=== PATIENT | female | born 1975 | race Caucasian/White ===

== ENCOUNTER 2016-12-17 10:12 | Emergency (ER) | payer OTHER ==
[2016-12-17 10:22] VITALS: BMI 21.7
[2016-12-17] MEDS ORDERED: ONDANSETRON 4 MG/2 ML VIAL ONE ×2 (10:34→13:11)
--- NOTE | 2016-12-17 10:35 | PDOC ---
History of Present Illness - General Chief Complaint: Pain Stated Complaint: ABD PAIN, VOMITING Time Seen by Provider: 12/17/16 10:25 - History of Present Illness Initial Comments: 12/17/16 10:53 The pt is a 41 year old female with a PMH of gastric sleeve who presents to ED complaining of nausea, vomiting and diarrhea and abdominal pain for 2-3 days. She vomited multiple times non bloody, non bilious, diarrhea is watery, non bloody. She is also complaining of abdominal pain, left side of her abdomen, radiating to the back, intermittent, 7/10, worse when vomiting. The pt is also complaining of generalized weakness. She denies fever, chills, dizziness. She denies chest pain, SOB, palpitations. She denies dysuria, increased frequency, urgency. The pt's son has been sick recently, had similar symptoms. Past History - Past Medical History Allergies/Adverse Reactions: Allergies Allergy/AdvReac Type Severity Reaction Status Date / Time Penicillins Allergy Rash Verified 08/29/16 09:38 Home Medications: Ambulatory Orders Alprazolam [Xanax] 0.25 mg PO TID 06/05/16 Sertraline HCl [Zoloft] 100 mg PO ASDIR 08/29/16 Anemia: Yes Asthma: No Cardiac Disorders: No CHF: No Diabetes: No HTN: No Hypercholesterolemia: No Kidney Stones: No Psychiatric Problems: Yes (ANXIETY) - Surgical History Abdominal Surgery: Yes (Gastric sleeve 04/2015) Appendectomy: Yes Cholecystectomy: Yes GI Surgery: Yes (SLEEVE) - Immunization History Immunization Up to Date: Yes - Psycho/Social/Smoking Cessation Hx Anxiety: Yes Suicidal Ideation: No Smoking Status: No Smoking History: Never smoked Have you smoked in the past 12 months: No Number of Cigarettes Smoked Daily: 0 Information on smoking cessation initiated: No Hx Alcohol Use: No Drug/Substance Use Hx: No Substance Use Type: None Review of Systems - Review of Systems Comments:: 12/17/16 11:08 REVIEW OF SYSTEMS CONSTITUTIONAL: Absent: fever, chills, diaphoresis, generalized weakness, malaise, loss of appetite, weight change HEENT: Absent: rhinorrhea, nasal congestion, throat pain, throat swelling, difficulty swallowing, mouth swelling, ear pain, eye pain, visual changes CARDIOVASCULAR: Absent: chest pain, syncope, palpitations, irregular heart rate, lightheadedness , peripheral edema RESPIRATORY: Absent: cough, shortness of breath, dyspnea with exertion, orthopnea, wheezing, GASTROINTESTINAL: abdominal pain, nausea, vomiting, diarrhea, Absent: abdominal distension, constipation, melena, hematochezia GENITOURINARY: Absent: dysuria, frequency, urgency, hesitancy, hematuria, flank pain, genital pain MUSCULOSKELETAL: baqck pain Absent: myalgia, joint swelling, back pain, neck pain SKIN: Absent: rash, itching, pallor HEMATOLOGIC/IMMUNOLOGIC: Absent: easy bleeding, easy bruising, lymphadenopathy, frequent infections ENDOCRINE: Absent: unexplained weight gain, unexplained weight loss, heat intolerance, cold intolerance NEUROLOGIC: Absent: headache, focal weakness or paresthesias, dizziness, unsteady gait, seizure, mental status changes, bladder or bowel incontinence PSYCHIATRIC: Absent: anxiety, depression 12/17/16 11:10 *Physical Exam - Vital Signs Last Vital Signs Temp Pulse Resp BP Pulse Ox 98 F 125 H 17 118/81 98 12/17/16 10:19 12/17/16 10:19 12/17/16 10:19 12/17/16 10:19 12/17/16 10:19 - Physical Exam Comments: 12/17/16 11:10 GENERAL: The patient is awake, alert, and fully oriented, in no acute distress. HEAD: Normal with no signs of trauma. EYES: PERRL, extraocular movements intact, sclera anicteric, conjunctiva clear. No ptosis. ENT: Ears normal, nares patent, oropharynx clear without exudates, moist mucous membranes. NECK: Trachea midline, full range of motion, supple. LUNGS: Breath sounds equal, clear to auscultation bilaterally, no wheezes, no crackles, no accessory muscle use. HEART: Regular rate and rhythm, S1, S2 without murmur, rub or gallop. ABDOMEN: Soft, tender to palpation in LUQ, nondistended, normoactive bowel sounds, no guarding, no rebound, no hepatosplenomegaly, no masses. EXTREMITIES: 2+ pulses, warm, well-perfused, no edema. NEUROLOGICAL: Cranial nerves II through XII grossly intact. Normal speech, gait not observed. PSYCH: Normal mood, normal affect. SKIN: Warm, dry, normal turgor, no rashes or lesions noted ED Treatment Course - LABORATORY CBC & Chemistry Diagram: 12/17/16 10:56 12/17/16 10:56 Medical Decision Making - Medical Decision Making 12/17/16 14:48 THe pt is complaining of N/V, abdominal pain. Differential diagnosis include viral infection, gastritis. The pt was given NS, Zofran, pain med. She clinically improved, her labs were reviewed, no abnormalities. She is ready for discharge. We recommend to f/u with PCP, hydrated and take Zofran when needed. *DC/Admit/Observation/Transfer Diagnosis at time of Disposition: Vomiting, Diarrhea - Discharge Dispostion Disposition: HOME Condition at time of disposition: Good Admit: No - Patient Instructions Additional Instructions: Please visit your primary care physician in a week. Take Zofran when you have nausea, Tylenol for pain. If your symptoms worsen come back to Emergency Room as soon as possible.
[2016-12-17] MEDS ORDERED: SODIUM CHLORIDE 1,000 ML IV STA ×2 (10:49→12:43)
[2016-12-17] MEDS ORDERED: ACETAMINOPHEN 1000 MG/100 ML VIAL (NON FORMULARY) IVPB ONE (10:51)
[2016-12-17] MEDS ORDERED: ONDANSETRON 4 MG/2 ML VIAL IVPB ONE ×2 (10:58→13:10)
[2016-12-17] MEDS ORDERED: ACETAMINOPHEN INJECTION 100 ML IVPB ONE (11:02)
[2016-12-17 11:09] LABS: MCH 29.2 pg (25.7-33.7); MCHC 32.8 g/dl (32.0-36.0); MEAN CELL VOLUME 89.1 fl (80-96); MEAN PLT VOLUME 8.2 fl (7.5-11.1); PLATELET COUNT 347 K/MM3 (134-434); RDW 15.1 % (11.6-15.6); WHITE BLOOD COUNT 7.2 K/mm3 (4.0-10.0)
--- NOTE | 2016-12-17 12:18 | EKG ---
Test Reason : Blood Pressure : / mmHG Vent. Rate : 079 BPM Atrial Rate : 079 BPM P-R Int : 164 ms QRS Dur : 070 ms QT Int : 350 ms P-R-T Axes : 070 051 -31 degrees QTc Int : 401 ms POOR DATA QUALITY, INTERPRETATION MAY BE ADVERSELY AFFECTED NORMAL SINUS RHYTHM ABNORMAL ECG NO PREVIOUS ECGS AVAILABLE Confirmed by JOE FARFAN MD ([id number]) on 12/17/2016 12:18:03 PM Referred By: Confirmed By:JOE FARFAN MD
[2016-12-17] MEDS ORDERED: morphine CARPU-JECT 4 MG/1 ML DISP.SYRIN IVPUSH ONE (12:44)
[2016-12-17] MEDS ORDERED: morphine CARPU-JECT 4 MG/1 ML DISP.SYRIN ONE (12:51)
--- NOTE | 2016-12-17 12:59 | PDOC ---
Attending Attestation - Resident Resident Name: Lexii Heaton - ED Attending Attestation I have performed the following: I have examined & evaluated the patient, The case was reviewed & discussed with the resident, I agree w/resident's findings & plan - HPI HPI: 12/17/16 13:46 41y F s/p gastric sleeve surgery, s?p appendectomy presenting with 1 day of n/v/ d and intermitent crampy abdominal pain that precedes her vomiting/diarrhea and is improved with these episodes. no associated fevers. pts kids also has similar sypmtoms. on exam pt well apppearing in no distress, her vitals were noted for tachycardia to 125 - likely from dicomfort and dehydration. pts CBC is unremarkable. cMP is pending as is the UA suspect AGE no focal tenderness to suggest acute localized peritonitis. hydration/zofran, supportive mangaement - Physicial Exam PE: 12/17/16 17:29 see above - Medical Decision Making 12/17/16 17:30 see above Heart Score/ECG Review - ECG Impressions Comment:: 12/17/16 17:29 Twelve-lead EKG was performed and reviewed by me. There is normal sinus rhythm with a normal rate. rate of 87 The axis is normal. The intervals are normal. There is normal R wave progression There are no ST or T wave abnormalities.
[2016-12-17 13:12] LABS: URINE APPEARANCE CLEAR; URINE BILIRUBIN NEGATIVE (NEGATIVE); URINE COLOR LTYELLOW; URINE GLUCOSE (UA) NEGATIVE (NEGATIVE); URINE KETONE 2+ (NEGATIVE); URINE LEUK ESTERASE NEGATIVE (NEGATIVE); URINE NITRITE NEGATIVE (NEGATIVE); URINE PROTEIN NEGATIVE (NEGATIVE); URINE UROBILINOGEN NEGATIVE E.U./dl (0.2-1.0)
[2016-12-17 14:03] LABS: ANION GAP 12 (8-16); CALCIUM 8.6 mg/dL (8.5-10.1); CO2 24 mmol/L (21-32)
[2016-12-17 14:07] LABS: GLUCOSE,RANDOM 69 mg/dL (74-106); SGOT/AST 15 U/L (15-37); SGPT/ALT 14 U/L (12-78)
[2016-12-17 14:09] LABS: ALK PHOS 143 U/L (45-117); BILIRUBIN,TOTAL 0.6 mg/dL (0.2-1.0); TOT PROT 7.3 g/dl (6.4-8.2)
[2016-12-17 14:15] LABS: URINE BLOOD 1+ (NEGATIVE)
[2016-12-17 14:16] LABS: URINE BACTERIA RARE /hpf (NONE SEEN); URINE MUCUS FEW; URINE RBC 1 /hpf (0-3); URINE WBC <1 /hpf (3-5)
[2016-12-17 14:29] VITALS: BP 111/62; PULSE 78; TEMP 98.7
== END 2016-12-17 15:28 | disposition home or self-care (01) ==
LOC: JER 10:12
PROC: 3E033NZ Introduction of Analgesics, Hypnotics, Sedatives into Peripheral Vein, Percutaneous Approach (ICD-10-PCS; principal; 2016-12-17)
PROC: 3E033GC Introduction of Other Therapeutic Substance into Peripheral Vein, Percutaneous Approach (ICD-10-PCS; 2016-12-17)
DX: K52.9 Noninfective gastroenteritis and colitis, unspecified (principal); F41.9 Anxiety disorder, unspecified; D64.9 Anemia, unspecified; Z98.84 Bariatric surgery status
CPT/HCPCS: 80053; 81003; 81015; 83690; 84703; 85027; 93005; 93010; 99285-25

== ENCOUNTER 2017-01-05 19:18 | Emergency (ER) | payer OTHER ==
[2017-01-05 19:41] VITALS: BP 127/78; PULSE 103; TEMP 100.4; BMI 21.1
[2017-01-05] MEDS ORDERED: KETOROLAC TROMETHAMINE 30 MG/1 ML VIAL IVPUSH ONE (21:17)
[2017-01-05] MEDS ORDERED: SODIUM CHLORIDE 1,000 ML IV STA (21:17)
[2017-01-05 21:26] LABS: URINE APPEARANCE CLEAR; URINE BILIRUBIN NEGATIVE (NEGATIVE); URINE BLOOD NEGATIVE (NEGATIVE); URINE COLOR COLORLESS; URINE GLUCOSE (UA) NEGATIVE (NEGATIVE); URINE KETONE NEGATIVE (NEGATIVE); URINE LEUK ESTERASE NEGATIVE (NEGATIVE); URINE NITRITE NEGATIVE (NEGATIVE); URINE PROTEIN NEGATIVE (NEGATIVE); URINE UROBILINOGEN NEGATIVE E.U./dl (0.2-1.0)
[2017-01-05] MEDS ORDERED: KETOROLAC TROMETHAMINE 30 MG/1 ML VIAL ONE (21:33)
[2017-01-05] MEDS ORDERED: OSELTAMIVIR PHOSPHATE 75 MG CAPSULE PO ONE (21:38)
[2017-01-05 21:45] LABS: BASOPHIL 0.9 % (0-2.0); EOSINOPHIL 0.1 % (0-4.5); MCH 28.9 pg (25.7-33.7); MCHC 32.9 g/dl (32.0-36.0); MEAN CELL VOLUME 87.7 fl (80-96); MEAN PLT VOLUME 7.8 fl (7.5-11.1); NEUTROPHILS 67.4 % (42.8-82.8); PLATELET COUNT 259 K/MM3 (134-434); RDW 15.9 % (11.6-15.6); WHITE BLOOD COUNT 4.7 K/mm3 (4.0-10.0)
[2017-01-05] MEDS ORDERED: OSELTAMIVIR PHOSPHATE 75 MG CAPSULE ONE (21:47)
--- NOTE | 2017-01-05 21:47 | PDOC ---
History of Present Illness - General History Source: Patient, Old Records Exam Limitations: No Limitations - History of Present Illness Initial Comments: 01/05/17 21:48 CHIEF COMPLAINT: Fever, chills, body aches HISTORY OF PRESENT ILLNESS: The patient is a 41 year old female, with a significant past medical history of anxiety and depression, who presents to the emergency department with fever, chills and body aches since last night. The patient reports a maximum temperature of 102.8 degrees at home. The patient reports that she has not taken any medications for her symptoms. The patient additionally endorses neck pain but does note that the neck pain has been somewhat of a chronic issue since at least 12/17/2016, prior to the onset of her current illness. The patient denies any injury or trauma. The patient reports several syncopal episodes over the past couple of weeks which she states she has seen her PCP and travel service consultant for and has been worked up for including a stress test, cardiogram and carotid dopplers. The patient reports recent travel , she states that she returned to [place] from the [facility] [place] on 2016. PCP: Dr. Hawk Castellano REVIEW OF SYSTEMS: CONSTITUTIONAL: Present: +Fever, chills, body aches Absent: diaphoresis, generalized weakness, malaise, loss of appetite HEENT: Absent: rhinorrhea, nasal congestion, throat pain, throat swelling, difficulty swallowing, mouth swelling, ear pain, eye pain, visual Changes CARDIOVASCULAR: Absent: chest pain, syncope, palpitations, irregular heart rate, lightheadedness , peripheral edema RESPIRATORY: Absent: cough, shortness of breath, dyspnea with exertion, orthopnea, wheezing, stridor, hemoptysis GASTROINTESTINAL: Absent: abdominal pain, abdominal distension, nausea, vomiting, diarrhea, constipation, melena, hematochezia GENITOURINARY: Absent: dysuria, frequency, urgency, hesitancy, hematuria, flank pain, genital pain MUSCULOSKELETAL: Present: +Neck pain, lower back pain, arthralgias Absent: joint swelling SKIN: Absent: rash, itching, pallor HEMATOLOGIC/IMMUNOLOGIC: Absent: easy bleeding, easy bruising, lymphadenopathy, frequent infections ENDOCRINE: Absent: unexplained weight gain, unexplained weight loss, heat intolerance, cold intolerance NEUROLOGIC: Absent: headache, focal weakness or paresthesias, dizziness, unsteady gait, seizure, mental status changes, bladder or bowel incontinence PSYCHIATRIC: Absent: anxiety, depression, suicidal or homicidal ideation, hallucinations. PHYSICAL EXAM: GENERAL: Well developed, well nourished. Awake and alert. No acute distress. HEENT: Normocephalic, atraumatic. PERRLA, EOMI. No conjunctival pallor. Sclera are non-icteric. Moist mucous membranes. Oropharynx is clear. NECK: The patient is holding her neck in the flexed position but is able to lift her chin to ceiling, chin to chest and turn her head left and right 90 degrees. Supple. Full ROM. No JVD. Carotid pulses 2+ and symmetric, without bruits. No thyromegaly. No lymphadenopathy. CARDIOVASCULAR: Regular rate and rhythm. No murmurs, rubs, or gallops. Distal pulses are 2+ and symmetric. PULMONARY: No evidence of respiratory distress. Lungs clear to auscultation bilaterally. No wheezing, rales or rhonchi. ABDOMINAL: Soft. Non-tender. Non-distended. No rebound or guarding. No organomegaly. Normoactive bowel sounds. MUSCULOSKELETAL Normal range of motion at all joints. No bony deformities or tenderness. No CVA tenderness. EXTREMITIES: No cyanosis. No clubbing. No edema. No calf tenderness. SKIN: Warm and dry. Normal capillary refill. No rashes. No jaundice. NEUROLOGICAL: Alert, awake, appropriate. Cranial nerves 2-12 intact. No deficits to light touch and temperature in face, upper extremities and lower extremities. No motor deficits in the in face, upper extremities and lower extremities. Normoreflexic in the upper and lower extremities. Normal speech. Toes are downgoing bilaterally. Gait is normal without ataxia. No midline, cervical, thoracic or lumbar tenderness. PSYCHIATRIC: Cooperative. Good eye contact. Appropriate mood and affect. <Rosemary Sorensen - Last Filed: 01/05/17 21:52> - General History Source: Patient Exam Limitations: No Limitations - History of Present Illness Initial Comments: 01/05/17 21:47 <Dipika Tanner - Last Filed: 01/05/17 22:26> - General Chief Complaint: Pain, Acute Stated Complaint: WEAKNESS Time Seen by Provider: 01/05/17 20:43 Past History <Rosemary Sorensen - Last Filed: 01/05/17 21:52> - Past Medical History Anemia: Yes Asthma: No Cardiac Disorders: No CHF: No Diabetes: No HTN: No Hypercholesterolemia: No Kidney Stones: No Psychiatric Problems: Yes (ANXIETY) - Surgical History Abdominal Surgery: Yes (Gastric sleeve 04/2015) Appendectomy: Yes Cholecystectomy: Yes GI Surgery: Yes (SLEEVE) - Immunization History Immunization Up to Date: Yes - Psycho/Social/Smoking Cessation Hx Anxiety: Yes Suicidal Ideation: No Smoking Status: No Smoking History: Never smoked Have you smoked in the past 12 months: No Number of Cigarettes Smoked Daily: 0 Hx Alcohol Use: No Drug/Substance Use Hx: No Substance Use Type: None <Dipika Tanner - Last Filed: 01/05/17 22:26> - Past Medical History Allergies/Adverse Reactions: Allergies Allergy/AdvReac Type Severity Reaction Status Date / Time Penicillins Allergy Rash Verified 01/05/17 19:41 Home Medications: Ambulatory Orders Alprazolam [Xanax] 0.25 mg PO TID 06/05/16 Sertraline HCl [Zoloft] 100 mg PO ASDIR 08/29/16 Ondansetron [Zofran -] 4 mg PO TID PRN #9 tablet 12/17/16 Ibuprofen [Motrin -] 600 mg PO QID PRN #30 tablet 01/05/17 Oseltamivir Phosphate [Tamiflu] 75 mg PO BID #9 capsule 01/05/17 *Physical Exam - Vital Signs Last Vital Signs Temp Pulse Resp BP Pulse Ox 100.4 F H 103 H 20 127/78 99 01/05/17 19:37 01/05/17 19:37 01/05/17 19:37 01/05/17 19:37 01/05/17 19:37 <Rosemary Sorensen - Last Filed: 01/05/17 21:52> - Vital Signs Last Vital Signs Temp Pulse Resp BP Pulse Ox 100.4 F H 103 H 20 127/78 99 01/05/17 19:37 01/05/17 19:37 01/05/17 19:37 01/05/17 19:37 01/05/17 19:37 <Dipika Tanner - Last Filed: 01/05/17 22:26> ED Treatment Course - LABORATORY CBC & Chemistry Diagram: 01/05/17 21:30 01/05/17 21:30 - ADDITIONAL ORDERS Additional order review: Laboratory Results 01/05/17 01/05/17 21:02 21:02 Urine Color Colorless Urine Appearance Clear Urine pH 7.0 D Ur Specific [place] 1.003 Urine Protein Negative Urine Glucose (UA) Negative Urine Ketones Negative Urine Blood Negative Urine Nitrite Negative Urine Bilirubin Negative Urine Urobilinogen Negative Ur Leukocyte Esterase Negative Urine HCG, Qual Negative 01/05/17 21:00 Influenza Types A,B Antigen (KADE) - Final Nasopharyngeal Swab - Final - Medications Given in the ED: ED Medications Discontinued Medications Generic Name Dose Route Start Last Admin Trade Name Freq PRN Reason Stop Dose Admin Ketorolac Tromethamine 30 mg 01/05/17 21:17 01/05/17 21:39 Toradol Injection - IVPUSH 01/05/17 21:18 30 mg ONCE ONE Administration <Rosemary Sorensen - Last Filed: 01/05/17 21:52> - LABORATORY CBC & Chemistry Diagram: 01/05/17 21:30 01/05/17 21:30 - ADDITIONAL ORDERS Additional order review: Laboratory Results 01/05/17 01/05/17 21:02 21:02 Urine Color Colorless Urine Appearance Clear Urine pH 7.0 D Ur Specific [place] 1.003 Urine Protein Negative Urine Glucose (UA) Negative Urine Ketones Negative Urine Blood Negative Urine Nitrite Negative Urine Bilirubin Negative Urine Urobilinogen Negative Ur Leukocyte Esterase Negative Urine HCG, Qual Negative 01/05/17 21:00 Influenza Types A,B Antigen (KADE) - Final Nasopharyngeal Swab - Final - Medications Given in the ED: ED Medications Discontinued Medications Generic Name Dose Route Start Last Admin Trade Name Freq PRN Reason Stop Dose Admin Ketorolac Tromethamine 30 mg 01/05/17 21:17 01/05/17 21:39 Toradol Injection - IVPUSH 01/05/17 21:18 30 mg ONCE ONE Administration <Dipika Tanner - Last Filed: 01/05/17 22:26> Medical Decision Making - Medical Decision Making 01/05/17 21:49 Of note, the patient tested positive for influenza during ED course. <Rosemary Sorensen - Last Filed: 01/05/17 21:52> - Medical Decision Making 01/05/17 22:04 A/P: 41 year old female with fever and bodyaches. Has neck pain but this is somewhat chronic, and there is no nucchal rigidity on exam. -Will give Toradol and IVF for symptomatic relief -Will send basic labs and Lyme Ab- patient will need to follow up for result -Will send flu swab Flu B pos. Will treat with Tamiflu. 01/05/17 22:23 Labs notable for H/H 8.7/26.3 - patient states she was notified by her PCP that she is anemic after her last visit there. <Dipika Tanner - Last Filed: 01/05/17 22:26> *DC/Admit/Observation/Transfer - Attestations Scribe Attestion: 01/05/17 21:48 Documentation prepared by Rosemary Sorensen, acting as adjunct faculty for medical terminology for Emergency Dept,Physician, /. <Rosemary Sorensen - Last Filed: 01/05/17 21:52> - Discharge Dispostion Admit: No <Dipika Tanner - Last Filed: 01/05/17 22:26> Diagnosis at time of Disposition: Influenza B - Discharge Dispostion Disposition: HOME Condition at time of disposition: Improved - Referrals Referrals: Hawk Castellano MD [Primary Care Provider] - 3 days - Patient Instructions Printed Discharge Instructions: DI for Influenza -- Adult Additional Instructions: You have the flu - please stay home! Take Tamiflu (an anti-viral) and ibuprofen as prescribed Follow up with Dr Castellano Return here for worsening pain, difficulty breathing, or any other concerning symptoms Your Lyme test was repeated today - please call here ([phone]) in 3 days for results - Post Discharge Activity Work/School Note: Back to Work
[2017-01-05 22:09] LABS: ALBUMIN 3.6 g/dl (3.4-5.0); ANION GAP 8 (8-16); BILIRUBIN,TOTAL 0.2 mg/dL (0.2-1.0); CO2 24 mmol/L (21-32); COCKROFT - GAULT 65.9685; CREATININE 0.9 mg/dL (0.55-1.02); GLUCOSE,RANDOM 90 mg/dL (74-106); SGOT/AST 21 U/L (15-37); SGPT/ALT 18 U/L (12-78); TOT PROT 6.6 g/dl (6.4-8.2)
[2017-01-05 22:10] LABS: ALK PHOS 93 U/L (45-117)
[2017-01-05] MEDS ORDERED: ACETAMINOPHEN WITH CODEINE 300MG/30MG TABLET PO ONE (22:44)
[2017-01-05] MEDS ORDERED: ACETAMINOPHEN WITH CODEINE 300MG/30MG TABLET ONE (22:47)
== END 2017-01-05 23:13 | disposition home or self-care (01) ==
LOC: JER 19:18 → JERFT 19:18
PROC: 3E0333Z Introduction of Anti-inflammatory into Peripheral Vein, Percutaneous Approach (ICD-10-PCS; principal; 2017-01-05)
PROC: 3E0337Z Introduction of Electrolytic and Water Balance Substance into Peripheral Vein, Percutaneous Approach (ICD-10-PCS; 2017-01-05)
DX: J10.1 Influenza due to other identified influenza virus with other respiratory manifestations (principal); F41.9 Anxiety disorder, unspecified
CPT/HCPCS: 36415; 80053; 81003; 84703; 85025; 86618; 87804; 99281-25

== ENCOUNTER 2017-05-23 20:49 | Emergency (ER) | payer OTHER ==
[2017-05-23 20:56] VITALS: BMI 22.1
[2017-05-23 22:29] LABS: BASOPHIL 0.9 % (0-2.0); EOSINOPHIL 1.5 % (0-4.5); MCH 27.8 pg (25.7-33.7); MCHC 32.3 g/dl (32.0-36.0); MEAN CELL VOLUME 85.8 fl (80-96); MEAN PLT VOLUME 7.9 fl (7.5-11.1); NEUTROPHILS 48.5 % (42.8-82.8); PLATELET COUNT 289 K/MM3 (134-434); RDW 17.5 % (11.6-15.6); WHITE BLOOD COUNT 6.5 K/mm3 (4.0-10.0)
--- NOTE | 2017-05-23 22:43 | PDOC ---
History of Present Illness - General Chief Complaint: Headache Stated Complaint: RIGHT EYE PAIN -BLURRED VISION Time Seen by Provider: 05/23/17 21:30 - History of Present Illness Initial Comments: 05/23/17 22:34 CHIEF COMPLAINT: headche/eye pressure HISTORY OF PRESENT ILLNESS: 41 yo F with hx of anemia and migraines presents to ED with severe R sided headache accompanied by "a lot of pressure behind my right eye." Patient states that she has had three similar episodes, the first of which was approximately one week ago, then a few days ago "but wasn't as bad ", and then today which was the worst. Patient denies any nausea, vomiting, diarrhea, fever, or chills, but reports that this is different from her " typical headaches" and that the pain behind her eye radiates down the right side of her head all the way to the back of her head. Patient denies any difficulty walking, slurred speech, dizziness, loss of balance, LOC, trauma to head. No recent travel or sick contacts. PAST MEDICAL HISTORY: as per HPI FAMILY HISTORY: Denies SOCIAL HISTORY:Denies tobacco, alcohol, illicit drug use. SURGICAL HISTORY: cholecystectomy, appendectomy, tonsillectomy, 2 c-sections, gastric sleeve ALLERGIES: PCN REVIEW OF SYSTEMS General/Constitutional: Denies fever or chills. Denies weakness, weight change. HEENT: Denies change in vision. Denies ear pain or discharge. Denies sore throat. Cardiovascular: Denies chest pain or shortness of breath. Respiratory: Denies cough, wheezing, or hemoptysis. Gastrointestinal: Denies nausea, vomiting, diarrhea or constipation. Denies rectal bleeding. Genitourinary: Denies dysuria, frequency, or change in urination. Musculoskeletal: Denies joint or muscle swelling or pain. Denies neck or back pain. Skin and breasts: Denies rash or easy bruising. Neurologic: Denies headache, vertigo, loss of consciousness, or loss of sensation. PHYSICAL EXAM General Appearance: Well-appearing, appropriately dressed. No apparent distress , no intoxication. HEENT: EOMI, PERRLA, normal ENT inspection, normal voice, TMs normal, pharynx normal. No conjunctival pallor. No photophobia, scleral icterus. Neck: Supple. Trachea midline. No tenderness, rigidity, carotid bruit, stridor , lymphadenopathy, or thyromegaly. Respiratory/Chest: Lungs CTAB. No shortness of breath, chest tenderness, respiratory distress, accessory muscle use. No crackles, rales, rhonchi, stridor , wheezing, dullness Cardiovascular: RRR. S1, S2. Vascular Pulses: Dorsalis-Pedis (R): 2+, Dorsalis-Pedis (L): 2+ Gastrointestinal/Abdominal: Normal bowel sounds. Abdomen soft, non-distended. No tenderness or rebound tenderness. No organomegaly, pulsatile mass, guarding , hernia, hepatomegaly, splenomegaly. Musculoskeletal/Extremities: Normal inspection. FROM of all extremities, normal capillary refill. Pelvis Stable. No CVA tenderness. No tenderness to extremities, pedal edema, swelling, erythema or deformity. Integumentary: Appropriate color, dry, warm. No cyanosis, erythema, jaundice or rash Neurologic: TTP to R sikhism. vehicle fuel systems converter II-XII intact. Fully oriented, alert. Appropriate mood/affect. Motor strength 5/5. No appreciable EOM palsy, facial droop or sensory deficit. A&Ox3, follow commands, respond appropriately CN2-12: conjugate gaze, pupil round, equal and reactive to light. Visual field full to confrontation. EOMI without nystagmus, pursuit is smooth without saccade. Facial sensation and muscle activation intact bilaterally. Hearing intact bilaterally. Palate elevate symmetrically. Shoulder shrug and neck turn full strength. Tongue protrude midline. Motor: UE and LE strength 5/5 throughout bilaterally. Muscle tone and bulk normal. Sensory: pin prick & temp : BUE & BLE intact and equal bilaterally Vibration & propioception: intact bilaterally at 1st MCP and MTP joints. no sensory level noted on trunk Plantar reflex downwards bilaterally. Cerebellar: Rapid-alternating movement with regular rhythm without bradykinesia. Stelmq-lr-bitu and owqn-qz-[id number] intact bilaterally without dysmetria or overshoot. Gait narrow based. No shuffling. Full hip flexion and knee flexion. Negative Romberg No involuntary movement noted. No pronator drift. No clonus. Past History - Past Medical History Allergies/Adverse Reactions: Allergies Allergy/AdvReac Type Severity Reaction Status Date / Time Penicillins Allergy Rash Verified 05/23/17 20:52 Home Medications: Ambulatory Orders Alprazolam [Xanax] 0.25 mg PO TID 06/05/16 Sertraline HCl [Zoloft] 100 mg PO ASDIR 08/29/16 Prednisone [Deltasone -] 60 mg PO DAILY #42 tablet 05/24/17 Anemia: Yes Asthma: No Cardiac Disorders: No CHF: No Diabetes: No HTN: No Hypercholesterolemia: No Kidney Stones: No Psychiatric Problems: Yes (ANXIETY) - Surgical History Abdominal Surgery: Yes (Gastric sleeve 04/2015) Appendectomy: Yes Cholecystectomy: Yes GI Surgery: Yes (SLEEVE) - Immunization History Immunization Up to Date: Yes - Psycho/Social/Smoking Cessation Hx Anxiety: Yes Suicidal Ideation: No Smoking Status: No Smoking History: Never smoked Have you smoked in the past 12 months: No Number of Cigarettes Smoked Daily: 0 Hx Alcohol Use: No Drug/Substance Use Hx: No Substance Use Type: None *Physical Exam - Vital Signs Last Vital Signs Temp Pulse Resp BP Pulse Ox 98 F 57 L 16 126/60 99 05/23/17 20:55 05/23/17 20:55 05/23/17 20:55 05/23/17 20:55 05/23/17 20:55 ED Treatment Course - LABORATORY CBC & Chemistry Diagram: 05/23/17 21:10 05/23/17 21:10 - ADDITIONAL ORDERS Additional order review: 05/23/17 21:10 RBC 3.48 L MCV 85.8 MCHC 32.3 RDW 17.5 H D MPV 7.9 Neutrophils % 48.5 D Lymphocytes % 43.7 H D Monocytes % 5.4 Eosinophils % 1.5 D Basophils % 0.9 Medical Decision Making - Medical Decision Making 05/24/17 00:48 41 yo F with hx of anemia and migraines presents to ED with severe R sided headache accompanied by "a lot of pressure behind my right eye." -CBC, CMP, ESR, CRP No focal neurological deficits. Concern for temporal arteritis given tenderness to R sikhism and pressure behind R eye, will reevaluate after labs/ meds. -Toradol, Reglan, Benadryl -IVF Patient refused Reglan, continues to complain of pressure and pain behind R eye. -60 mg prednisone po Patient reassessed; at this time she states the pain and pressure in her head/ eye "is feeling better, it's starting to go away." Advised patient to take medication as prescribed and f/u with ophtho and neurology this week . Patient verbalized understanding and agrees to plan. *DC/Admit/Observation/Transfer Diagnosis at time of Disposition: Temporal arteritis Headache Qualifiers: Headache type: unspecified Headache chronicity pattern: chronic headache Intractability: not intractable Qualified Code(s): R51 - Headache - Discharge Dispostion Disposition: HOME Condition at time of disposition: Stable Admit: No - Prescriptions Prescriptions: Prednisone [Deltasone -] 60 mg PO DAILY #42 tablet - Referrals Referrals: Hawk Castellano MD [Primary Care Provider] - Mahamed Ledbetter MD [Staff Physician] - Malick Sebastian MD [Staff Physician] - - Patient Instructions Printed Discharge Instructions: Temporal Arteritis Additional Instructions: Please take medication as prescribed. You MUST follow up with ophthalmology and /or neurology this week as discussed. If you experience any sudden change in vision, "thunderclap" headache, weakness to one side, difficulty walking or speaking, or any new or worsening symptoms, please return to the ER.
[2017-05-23 22:51] LABS: ALBUMIN 3.9 g/dl (3.4-5.0); ALK PHOS 114 U/L (45-117); ANION GAP 6 (8-16); BILIRUBIN,TOTAL 0.3 mg/dL (0.2-1.0); CALCIUM 8.5 mg/dL (8.5-10.1); CO2 29 mmol/L (21-32); CREATININE 0.9 mg/dL (0.55-1.02); GLUCOSE,RANDOM 93 mg/dL (74-106); SGOT/AST 19 U/L (15-37); SGPT/ALT 19 U/L (12-78); TOT PROT 6.9 g/dl (6.4-8.2)
[2017-05-23] MEDS ORDERED: KETOROLAC TROMETHAMINE 30 MG/1 ML VIAL IVPUSH ONE (23:04)
[2017-05-23] MEDS ORDERED: METOCLOPRAMIDE HCL INJECTION 10 MG/2 ML VIAL IVPB ONE (23:04)
[2017-05-23] MEDS ORDERED: SODIUM CHLORIDE 0.9% 1000 ML INFUS.BAG IV ONE (23:04)
[2017-05-23] MEDS ORDERED: METOCLOPRAMIDE HCL INJECTION 10 MG/2 ML VIAL ONE (23:13)
[2017-05-23] MEDS ORDERED: KETOROLAC TROMETHAMINE 30 MG/1 ML VIAL ONE (23:13)
[2017-05-23] MEDS ORDERED: DEXAMETHASONE SOD PHOSPHATE 10 MG/1 ML VIAL IVPUSH ONE (23:37)
[2017-05-23] MEDS ORDERED: predniSONE 20 MG TABLET (UD) PO ONE (23:38)
[2017-05-24] MEDS ORDERED: predniSONE 20 MG TABLET (UD) ONE (00:03)
[2017-05-24 01:24] VITALS: BP 124/71; PULSE 55; TEMP 98.2
== END 2017-05-24 01:24 | disposition home or self-care (01) ==
LOC: JER 20:49 → JERFT 20:49 → JER 05-24 01:24
PROC: 3E0333Z Introduction of Anti-inflammatory into Peripheral Vein, Percutaneous Approach (ICD-10-PCS; principal; 2017-05-23)
PROC: 3E033GC Introduction of Other Therapeutic Substance into Peripheral Vein, Percutaneous Approach (ICD-10-PCS; 2017-05-23)
PROC: 3E033GC Introduction of Other Therapeutic Substance into Peripheral Vein, Percutaneous Approach (ICD-10-PCS; 2017-05-23)
DX: M31.6 Other giant cell arteritis (principal)
CPT/HCPCS: 36415; 80053; 85025; 85651; 86140; 99282-25

== ENCOUNTER 2017-05-31 13:18 | Emergency (ER) | payer OTHER ==
[2017-05-31 13:23] VITALS: TEMP 98; BMI 21.7
--- NOTE | 2017-05-31 14:52 | PDOC ---
History of Present Illness - General Chief Complaint: Headache Stated Complaint: HEADACHE, BLURRY VISION Time Seen by Provider: 05/31/17 14:22 Past History - Past Medical History Allergies/Adverse Reactions: Allergies Allergy/AdvReac Type Severity Reaction Status Date / Time Penicillins Allergy Rash Verified 05/31/17 13:24 Home Medications: Ambulatory Orders Alprazolam [Xanax] 0.25 mg PO TID 06/05/16 Sertraline HCl [Zoloft] 100 mg PO ASDIR 08/29/16 Anemia: Yes Asthma: No Cardiac Disorders: No CHF: No Diabetes: No HTN: No Hypercholesterolemia: No Kidney Stones: No Psychiatric Problems: Yes (ANXIETY) - Surgical History Abdominal Surgery: Yes (Gastric sleeve 04/2015) Appendectomy: Yes Cholecystectomy: Yes GI Surgery: Yes (SLEEVE) - Immunization History Immunization Up to Date: Yes - Psycho/Social/Smoking Cessation Hx Anxiety: Yes Suicidal Ideation: No Smoking Status: No Smoking History: Never smoked Have you smoked in the past 12 months: No Number of Cigarettes Smoked Daily: 0 Information on smoking cessation initiated: No Hx Alcohol Use: No Drug/Substance Use Hx: No Substance Use Type: None *Physical Exam - Vital Signs Last Vital Signs Temp Pulse Resp BP Pulse Ox 98 F 59 L 18 116/80 100 05/31/17 13:22 05/31/17 13:22 05/31/17 13:22 05/31/17 13:22 05/31/17 13:22
[2017-05-31] MEDS ORDERED: KETOROLAC TROMETHAMINE 30 MG/1 ML VIAL ONE (15:03)
--- NOTE | 2017-05-31 15:26 | PDOC ---
History of Present Illness - General History Source: Patient Exam Limitations: No Limitations - History of Present Illness Initial Comments: 05/31/17 16:44 The patient is a 41 year old female, with a significant past medical history of anxiety, migraines and anemia, who presents to the emergency department complaining of a right sided headache for approximately 10 days. The patient reports her headache is localized to the right orbital and radiates from her right frontal to her right occipital lobe. Patient reports associated blurred vision, right eye pain, difficulty focusing, and pressure to her right eye socket. Patient reports her pain is exacerbated with head movement. She reports mild photophobia. Patient reports she has a recent history of a gastric sleeve sx, and has only been able to take tylenol for the pain with no relief. Patient reports she presented to the ED with similar symptoms several days ago, where she was given toradol, benadryl, and prednisone with mild relief of headache. Patient reports associated jaw pain when chewing, but denies any tearing or rhinorrhea. She denies any nausea or vomiting. She denies any fever or chills. Allergies: Penicillins Past Surgical History: Gastric sleeve, appendectomy, cholecystectomy Social History: Nonsmoker. No ETOH or recreational drug use. PCP: Dr. Castellano <Alexandr Arce - Last Filed: 05/31/17 19:30> <Nathalia Quevedo - Last Filed: 05/31/17 19:38> - General Chief Complaint: Headache Stated Complaint: HEADACHE, BLURRY VISION Time Seen by Provider: 05/31/17 14:22 Past History <Alexandr Arce - Last Filed: 05/31/17 19:30> - Past Medical History Anemia: Yes Asthma: No Cardiac Disorders: No CHF: No Diabetes: No HTN: No Hypercholesterolemia: No Kidney Stones: No Psychiatric Problems: Yes (ANXIETY) - Surgical History Abdominal Surgery: Yes (Gastric sleeve 04/2015) Appendectomy: Yes Cholecystectomy: Yes GI Surgery: Yes (SLEEVE) - Immunization History Immunization Up to Date: Yes - Psycho/Social/Smoking Cessation Hx Anxiety: Yes Suicidal Ideation: No Smoking Status: No Smoking History: Never smoked Have you smoked in the past 12 months: No Number of Cigarettes Smoked Daily: 0 Information on smoking cessation initiated: No Hx Alcohol Use: No Drug/Substance Use Hx: No Substance Use Type: None <ShawnrennyelizabetNathalia - Last Filed: 05/31/17 19:38> - Past Medical History Allergies/Adverse Reactions: Allergies Allergy/AdvReac Type Severity Reaction Status Date / Time Penicillins Allergy Rash Verified 05/31/17 13:24 Home Medications: Ambulatory Orders Alprazolam [Xanax] 0.25 mg PO TID 06/05/16 Sertraline HCl [Zoloft] 100 mg PO ASDIR 08/29/16 Review of Systems - Review of Systems Able to Perform ROS?: Yes Comments:: 05/31/17 16:49 GENERAL/CONSTITUTIONAL: No fever or chills. No weakness. HEAD, EYES, EARS, NOSE AND THROAT: Yes: +blurry vision, +right eye pain, + difficulty focusing vision, +eye pressure, +photophobia, +headache, jaw pain.No ear pain or discharge. No sore throat. CARDIOVASCULAR: No chest pain or shortness of breath. RESPIRATORY: No cough, wheezing, or hemoptysis. GASTROINTESTINAL: No nausea, vomiting, diarrhea or constipation. GENITOURINARY: No dysuria, frequency, or change in urination. MUSCULOSKELETAL: No joint or muscle swelling or pain. No neck or back pain. SKIN: No rash NEUROLOGIC: No headache, vertigo, loss of consciousness, or change in strength/ sensation. ENDOCRINE: No increased thirst. No abnormal weight change. HEMATOLOGIC/LYMPHATIC: No anemia, easy bleeding, or history of blood clots. ALLERGIC/IMMUNOLOGIC: No hives or skin allergy. <Alexandr Arce - Last Filed: 05/31/17 19:30> *Physical Exam - Vital Signs Last Vital Signs Temp Pulse Resp BP Pulse Ox 98 F 59 L 18 116/80 100 05/31/17 13:22 05/31/17 13:22 05/31/17 13:22 05/31/17 13:22 05/31/17 13:22 - Physical Exam Comments: 05/31/17 16:45 GENERAL: Awake, alert, and fully oriented, in no acute distress HEAD: No signs of trauma. No temporal tenderness. EYES: PERRLA, EOMI, sclera anicteric, conjunctiva clear ENT: Auricles normal inspection, hearing grossly normal, nares patent, oropharynx clear without exudates. Moist mucosa NECK: Normal ROM, supple, no lymphadenopathy, JVD, or masses LUNGS: Breath sounds equal, clear to auscultation bilaterally. No wheezes, and no crackles HEART: Regular rate and rhythm, normal S1 and S2, no murmurs, rubs or gallops ABDOMEN: Soft, nontender, normoactive bowel sounds. No guarding, no rebound. No masses EXTREMITIES: Normal range of motion, no edema. No clubbing or cyanosis. No cords, erythema, or tenderness NEUROLOGICAL: Cranial nerves II through XII grossly intact. Normal speech, normal gait SKIN: Warm, Dry, normal turgor, no rashes or lesions noted. <Alexandr Arce - Last Filed: 05/31/17 19:30> - Vital Signs Last Vital Signs Temp Pulse Resp BP Pulse Ox 98 F 59 L 18 116/80 100 05/31/17 13:22 05/31/17 13:22 05/31/17 13:22 05/31/17 13:22 05/31/17 13:22 <Nathalia Quevedo - Last Filed: 05/31/17 19:38> ED Treatment Course - LABORATORY CBC & Chemistry Diagram: 05/31/17 15:30 05/31/17 15:30 - ADDITIONAL ORDERS Additional order review: Laboratory Results 05/31/17 05/31/17 05/31/17 15:30 15:30 14:45 Sodium 140 Potassium 3.9 Chloride 104 Carbon Dioxide 28 Anion Gap 8 BUN 11 Creatinine 0.7 D Creat Clearance w eGFR > 60 Random Glucose 86 Calcium 8.8 Total Bilirubin 0.2 D AST 21 ALT 20 Alkaline Phosphatase 122 H C-Reactive Protein Cancelled < 0.3 Total Protein 7.4 Albumin 4.1 Urine HCG, Qual Negative 05/31/17 15:30 RBC 3.41 L MCV 84.9 MCHC 32.7 RDW 17.4 H MPV 8.4 Neutrophils % 55.1 Lymphocytes % 36.2 Monocytes % 5.8 Eosinophils % 1.9 Basophils % 1.0 - RADIOLOGY Radiograph Interpretation: 05/31/17 17:07 EXAM: Head CT INTERPRETED BY: Dr. Munson REVIEWED BY: Dr. Quevedo IMPRESSION: No CT evidence of acute intracranial pathology. 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 MRI evaluation is suggested , nonemergent unless otherwise clinically indicated. - Medications Given in the ED: ED Medications Discontinued Medications Generic Name Dose Route Start Last Admin Trade Name Natalya PRN Reason Stop Dose Admin Dexamethasone Sodium Phosphate 10 mg 05/31/17 15:41 05/31/17 15:56 Decadron Injection - IVPUSH 05/31/17 15:42 10 mg ONCE ONE Administration Lorazepam 0.5 mg 05/31/17 15:41 05/31/17 15:56 Ativan - PO 05/31/17 15:42 0.5 mg ONCE ONE Administration <Alexandr Arce - Last Filed: 05/31/17 19:30> - LABORATORY CBC & Chemistry Diagram: 05/31/17 15:30 05/31/17 15:30 - ADDITIONAL ORDERS Additional order review: Laboratory Results 05/31/17 14:45 Urine HCG, Qual Negative <Nathalia Quevedo - Last Filed: 05/31/17 19:38> Medical Decision Making - Medical Decision Making 05/31/17 18:[address] Melgar at 18:08. Dr. Melgar agreed to see his patient in his office tomorrow at 11:00. <Alexandr Arce - Last Filed: 05/31/17 19:30> - Medical Decision Making 05/31/17 19:35 a/p: 41yo female with R sided noonan. No temporal tenderness. No jaw claudication. No focal neuro sx. no meningeal signs -will check labs -ct head -medicate 05/31/17 19:36 re-eval: pt still c/o noonan. states toradol helped, but still with headache. repeat neuro still without focal deficits 05/31/17 19:36 ct head reviewed. case discussed with DR. Melgar who states he will see the patient tomorrow in the office at 11am 05/31/17 19:37 pt states she will take reglan now with benadryl. concerned bc reaction to reglan in the past. 05/31/17 19:38 pt stable for d/c to home. discussed need for follow up tomorrow with neuro. discussed all reasons to return to the ED. Pt tolerated po intake in the ed. answered all questins. Pt stable for d/c to home <Nathalia Quevedo - Last Filed: 05/31/17 19:38> *DC/Admit/Observation/Transfer - Attestations Scribe Attestion: 05/31/17 16:45 Documentation prepared by Alexandr Arce, acting as medical coordinator pesticide use for Nathalia Quevedo DO. <Alexandr Arce - Last Filed: 05/31/17 19:30> - Discharge Dispostion Admit: No - Attestations Physician Attestion: 05/31/17 19:34 I, Dr. Nathalia Quevedo DO, attest that this document has been prepared under my direction and personally reviewed by me in its entirety. I further attest, that it accurately reflects all work, treatment, procedures and medical decision -making performed by me. <Nathalia Quevedo - Last Filed: 05/31/17 19:38> Diagnosis at time of Disposition: Headache Qualifiers: Headache type: unspecified Headache chronicity pattern: unspecified pattern Intractability: not intractable Qualified Code(s): R51 - Headache - Discharge Dispostion Disposition: HOME Condition at time of disposition: Stable - Referrals Referrals: Hawk Castellano MD [Primary Care Provider] - Skip Melgar MD [Staff Physician] - - Patient Instructions Printed Discharge Instructions: DI for Headache Additional Instructions: Please follow up with DR. Melgar tomorrow at 11am. Please follow up with your PMD. Please return to the ED with any further concerns.
[2017-05-31] MEDS ORDERED: LORazepam 0.5 MG TABLET PO ONE (15:41)
[2017-05-31] MEDS ORDERED: DEXAMETHASONE SOD PHOSPHATE 10 MG/1 ML VIAL IVPUSH ONE (15:41)
[2017-05-31] MEDS ORDERED: DEXAMETHASONE SOD PHOSPHATE 10 MG/1 ML VIAL ONE (15:52)
[2017-05-31] MEDS ORDERED: LORazepam 0.5 MG TABLET ONE (15:52)
[2017-05-31 15:57] LABS: EOSINOPHIL 1.9 % (0-4.5); MCH 27.8 pg (25.7-33.7); MCHC 32.7 g/dl (32.0-36.0); MEAN CELL VOLUME 84.9 fl (80-96); MEAN PLT VOLUME 8.4 fl (7.5-11.1); NEUTROPHILS 55.1 % (42.8-82.8); PLATELET COUNT 330 K/MM3 (134-434); RDW 17.4 % (11.6-15.6); WHITE BLOOD COUNT 5.8 K/mm3 (4.0-10.0)
[2017-05-31 16:04] LABS: ALBUMIN 4.1 g/dl (3.4-5.0); ALK PHOS 122 U/L (45-117); ANION GAP 8 (8-16); BILIRUBIN,TOTAL 0.2 mg/dL (0.2-1.0); C-REACTIVE PROTEIN < 0.3 MG/DL (0.00-0.3); CALCIUM 8.8 mg/dL (8.5-10.1); CO2 28 mmol/L (21-32); CREATININE 0.7 mg/dL (0.55-1.02); GLUCOSE,RANDOM 86 mg/dL (74-106); SGOT/AST 21 U/L (15-37); SGPT/ALT 20 U/L (12-78); TOT PROT 7.4 g/dl (6.4-8.2)
[2017-05-31 17:48] VITALS: BP 121/86; PULSE 74
[2017-05-31] MEDS ORDERED: ACETAMINOPHEN/CAFFEINE/BUTALBITAL 1 TAB PO ONE (17:49)
[2017-05-31] MEDS ORDERED: ACETAMINOPHEN/CAFFEINE/BUTALBITAL 1 TAB ONE (18:15)
[2017-05-31] MEDS ORDERED: KETOROLAC TROMETHAMINE 60 MG/2 ML VIAL IVPUSH ONE (19:14)
[2017-05-31] MEDS ORDERED: METOCLOPRAMIDE HCL INJECTION 10 MG/2 ML VIAL IVPUSH ONE (19:32)
[2017-05-31] MEDS ORDERED: METOCLOPRAMIDE HCL INJECTION 10 MG/2 ML VIAL ONE (19:36)
== END 2017-05-31 20:18 | disposition home or self-care (01) ==
LOC: JER 13:18 → JERFT 13:18 → JER 20:18
PROC: 3E0333Z Introduction of Anti-inflammatory into Peripheral Vein, Percutaneous Approach (ICD-10-PCS; principal; 2017-05-31)
PROC: 3E0333Z Introduction of Anti-inflammatory into Peripheral Vein, Percutaneous Approach (ICD-10-PCS; 2017-05-31)
PROC: 3E033GC Introduction of Other Therapeutic Substance into Peripheral Vein, Percutaneous Approach (ICD-10-PCS; 2017-05-31)
PROC: 3E033GC Introduction of Other Therapeutic Substance into Peripheral Vein, Percutaneous Approach (ICD-10-PCS; 2017-05-31)
DX: R51 Headache (principal); F41.9 Anxiety disorder, unspecified; G43.909 Migraine, unspecified, not intractable, without status migrainosus; D64.9 Anemia, unspecified
CPT/HCPCS: 36415; 70450-TC; 80053; 84703; 85025; 85651; 86038; 86140; 99283-25

== ENCOUNTER 2017-08-16 19:11 | Emergency (ER) | payer OTHER ==
[2017-08-16 19:16] VITALS: BP 119/80; PULSE 61; TEMP 98; BMI 22.6
--- NOTE | 2017-08-16 19:20 | PDOC ---
Rapid Medical Evaluation Time Seen by Provider: 08/16/17 19:12 Medical Evaluation: Allergies Allergy/AdvReac Type Severity Reaction Status Date / Time Penicillins Allergy Rash Verified 05/31/17 13:24 08/16/17 19:13 I have performed a brief in person evaluation of this patient. The patient presents with chief complaint of : abd pain and distention for 2 days nausea with some vomiting Pertinent PE findings: none I have ordered the following: urine , UA , cbc, cmp The patient will proceed to the ER for further evaluation.
[2017-08-16 20:25] LABS: BASOPHIL 1.1 % (0-2.0); EOSINOPHIL 1.7 % (0-4.5); MCH 28.1 pg (25.7-33.7); MCHC 32.8 g/dl (32.0-36.0); MEAN CELL VOLUME 85.6 fl (80-96); MEAN PLT VOLUME 8.1 fl (7.5-11.1); NEUTROPHILS 49.5 % (42.8-82.8); PLATELET COUNT 353 K/MM3 (134-434); RDW 17.6 % (11.6-15.6); WHITE BLOOD COUNT 7.1 K/mm3 (4.0-10.0)
[2017-08-16 20:42] LABS: URINE APPEARANCE SLCLOUDY; URINE BILIRUBIN NEGATIVE (NEGATIVE); URINE BLOOD 1+ (NEGATIVE); URINE COLOR YELLOW; URINE GLUCOSE (UA) NEGATIVE (NEGATIVE); URINE KETONE NEGATIVE (NEGATIVE); URINE NITRITE NEGATIVE (NEGATIVE); URINE PROTEIN NEGATIVE (NEGATIVE); URINE UROBILINOGEN NEGATIVE mg/dL (0.2-1.0)
[2017-08-16 20:48] LABS: ALBUMIN 3.9 g/dl (3.4-5.0); ALK PHOS 129 U/L (45-117); ANION GAP 5 (8-16); BILIRUBIN,TOTAL 0.3 mg/dL (0.2-1.0); CALCIUM 8.5 mg/dL (8.5-10.1); CO2 28 mmol/L (21-32); GLUCOSE,RANDOM 92 mg/dL (74-106); SGOT/AST 14 U/L (15-37); SGPT/ALT 16 U/L (12-78); TOT PROT 7.3 g/dl (6.4-8.2)
[2017-08-16 20:54] LABS: URINE MUCUS MANY; URINE RBC 2 /hpf (0-3); URINE WBC 2 /hpf (3-5)
[2017-08-16 22:23] LABS: URINE LEUK ESTERASE Negative (NEGATIVE)
[2017-08-16] MEDS ORDERED: ONDANSETRON 4 MG/2 ML VIAL IVPB ONE (22:39)
[2017-08-16] MEDS ORDERED: SODIUM CHLORIDE 1,000 ML IV SCH (22:45)
--- NOTE | 2017-08-16 22:48 | PDOC ---
History of Present Illness - General History Source: Patient - History of Present Illness Initial Comments: 08/16/17 22:41 41yo woman with significant h/o abdominal surgery of gastric sleeve in 2014, lap eve 2010, appendectomy, and 2x C sections who presents with increasing abdominal pain for the past week and post-prandial emesis today. The abdominal pain starts in the epigastrum and radiates to the lower abdomen, throbbing in character, 5/10 severity that is worse after eating. She had two episodes of NBNB emesis after eating, which prompted her to come to the ED. She reports chronic constipation, but for the past week has had daily BMs without medication , which she reports is unusual for her. BM are non PMH: -depression/anxiety - treated with Zoloft 150mg qd, Xanax 0.75mg qd PRN -migraines - treated PRN with Topimax, Magnesium PSx: -gastric sleeve - 2014 at [facility], Dr. Luna -cholecystectomy - 2010 -appendectomy -tonsillectomy -2x C-sections -breast reduction Allergies: Penicillin -> rash when a baby Social: Never smoker, social EtOH, denies drugs PCP: Dr. Castellano GI: Dr. Ackerman <Yancy Arguello - Last Filed: 08/17/17 02:22> <Poonam Morrison - Last Filed: 08/17/17 18:17> - General Chief Complaint: Pain Stated Complaint: STOMACH PAIN Time Seen by Provider: 08/16/17 19:12 Past History - Past Medical History Anemia: Yes Asthma: No Cardiac Disorders: No COPD: No CHF: No Diabetes: No HTN: No Hypercholesterolemia: No Kidney Stones: No Psychiatric Problems: Yes (ANXIETY) - Surgical History Abdominal Surgery: Yes (Gastric sleeve 04/2015) Appendectomy: Yes Cholecystectomy: Yes GI Surgery: Yes (SLEEVE) - Immunization History Immunization Up to Date: Yes - Suicide/Smoking/Psychosocial Hx Smoking Status: No Smoking History: Never smoked Have you smoked in the past 12 months: No Number of Cigarettes Smoked Daily: 0 Hx Alcohol Use: No Drug/Substance Use Hx: No Substance Use Type: None <Yancy Arguello - Last Filed: 08/17/17 02:22> <Poonam Morrison - Last Filed: 08/17/17 18:17> - Past Medical History Allergies/Adverse Reactions: Allergies Allergy/AdvReac Type Severity Reaction Status Date / Time Penicillins Allergy Rash Verified 08/16/17 19:14 Home Medications: Ambulatory Orders Alprazolam [Xanax] 0.25 mg PO TID 06/05/16 Sertraline HCl [Zoloft] 100 mg PO ASDIR 08/29/16 Levofloxacin [Levaquin] 750 mg PO DAILY #7 tablet 08/17/17 Metronidazole [Flagyl -] 500 mg PO TID #21 tablet 08/17/17 *Physical Exam - Vital Signs Last Vital Signs Temp Pulse Resp BP Pulse Ox 98 F 61 18 119/80 98 08/16/17 19:14 08/16/17 19:14 08/16/17 19:14 08/16/17 19:14 08/16/17 19:14 - Physical Exam General Appearance: Yes: Nourished, Appropriately Dressed HEENT: positive: Normal ENT Inspection Respiratory/Chest: positive: Lungs Clear, Normal Breath Sounds Cardiovascular: positive: Regular Rhythm, Regular Rate, S1, S2 Gastrointestinal/Abdominal: positive: Normal Bowel Sounds, Soft, Other ( epigastric tenderness, (-)guarding, (-)rebound) Integumentary: positive: Normal Color Neurologic: positive: Fully Oriented, Alert <Yancy Arguello - Last Filed: 08/17/17 02:22> - Vital Signs Last Vital Signs Temp Pulse Resp BP Pulse Ox 98 F 61 18 119/80 98 08/16/17 19:14 08/16/17 19:14 08/16/17 19:14 08/16/17 19:14 08/16/17 19:14 <Poonam Morrison - Last Filed: 08/17/17 18:17> ED Treatment Course - LABORATORY CBC & Chemistry Diagram: 08/16/17 18:05 08/16/17 18:05 - ADDITIONAL ORDERS Additional order review: Laboratory Results 08/16/17 08/16/17 18:05 18:05 Sodium 142 Potassium 4.0 Chloride 109 H Carbon Dioxide 28 Anion Gap 5 L BUN 17 D Creatinine 1.0 D Creat Clearance w eGFR > 60 Random Glucose 92 Calcium 8.5 Total Bilirubin 0.3 D AST 14 L D ALT 16 Alkaline Phosphatase 129 H Total Protein 7.3 Albumin 3.9 Urine Color Yellow Urine Appearance Slcloudy Urine pH 5.0 D Ur Specific [place] 1.023 Urine Protein Negative Urine Glucose (UA) Negative Urine Ketones Negative Urine Blood 1+ H Urine Nitrite Negative Urine Bilirubin Negative Urine Urobilinogen Negative Ur Leukocyte Esterase Negative Urine WBC (Auto) 2 Urine RBC (Auto) 2 Ur Epithelial Cells Rare Urine Mucus Many Urine HCG, Qual Negative 08/16/17 18:05 RBC 3.73 MCV 85.6 MCHC 32.8 RDW 17.6 H MPV 8.1 Neutrophils % 49.5 Lymphocytes % 41.9 H Monocytes % 5.8 Eosinophils % 1.7 Basophils % 1.1 <Yancy Arguello - Last Filed: 08/17/17 02:22> - LABORATORY CBC & Chemistry Diagram: 08/16/17 18:05 08/16/17 18:05 - ADDITIONAL ORDERS Additional order review: 08/16/17 18:05 RBC 3.73 MCV 85.6 MCHC 32.8 RDW 17.6 H MPV 8.1 Neutrophils % 49.5 Lymphocytes % 41.9 H Monocytes % 5.8 Eosinophils % 1.7 Basophils % 1.1 - RADIOLOGY Radiology Studies Ordered: Category Date Time Status ABDOMEN & PELVIS CT WITH CONTR [CT] Stat CT Scan 08/17/17 00:32 Completed ABDOMEN [id number] [RAD] Stat Radiology 08/16/17 22:48 Completed - Medications Given in the ED: ED Medications Discontinued Medications Generic Name Dose Route Start Last Admin Trade Name Freq PRN Reason Stop Dose Admin Sodium Chloride 1,000 mls @ 100 mls/hr 08/16/17 22:45 08/16/17 23:04 Normal Saline - IV 100 mls/hr ASDIR SAMEER Administration Levofloxacin 750 mg 08/17/17 04:45 08/17/17 05:03 Levaquin PO 750 mg DAILY SAMEER Administration Metronidazole 500 mg 08/17/17 04:33 08/17/17 05:03 Flagyl - PO 08/17/17 04:34 500 mg ONCE ONE Administration Ondansetron HCl 8 mg 08/16/17 22:39 08/16/17 23:04 Zofran Injection IVPB 08/16/17 22:40 8 mg ONCE ONE Administration <Poonam Morrison - Last Filed: 08/17/17 18:17> Medical Decision Making - Medical Decision Making 08/17/17 19:26 Patient with multiple abdominal surgeries. Differential includes, but not limited to SBO vs PUD vs . Labs are reassuring that is there no infectious process. test is neg. Abd XRay ordered to r/o obstruction. -Care of patient will be continued by Dr. Morrison. <Yancy Arguello - Last Filed: 08/17/17 02:22> *DC/Admit/Observation/Transfer <Yancy Arguello - Last Filed: 08/17/17 02:22> <Poonam Morrison - Last Filed: 08/17/17 18:17> Diagnosis at time of Disposition: Colitis - Discharge Dispostion Disposition: HOME Condition at time of disposition: Stable - Prescriptions Prescriptions: Levofloxacin [Levaquin] 750 mg PO DAILY #7 tablet Metronidazole [Flagyl -] 500 mg PO TID #21 tablet - Referrals Referrals: Hawk Castellano MD [Primary Care Provider] - - Patient Instructions Printed Discharge Instructions: DI for Colitis - Post Discharge Activity
--- NOTE | 2017-08-17 03:25 | PDOC ---
*Physical Exam - Vital Signs Last Vital Signs Temp Pulse Resp BP Pulse Ox 98 F 61 18 119/80 98 08/16/17 19:14 08/16/17 19:14 08/16/17 19:14 08/16/17 19:14 08/16/17 19:14 Heart Score/ECG Review - ECG Impressions Comment:: EKG read 04:38- Sinus fawn 51 bpm. ATc 387. ED Treatment Course - LABORATORY CBC & Chemistry Diagram: 08/16/17 18:05 08/16/17 18:05 - ADDITIONAL ORDERS Additional order review: Laboratory Results 08/16/17 08/16/17 18:05 18:05 Sodium 142 Potassium 4.0 Chloride 109 H Carbon Dioxide 28 Anion Gap 5 L BUN 17 D Creatinine 1.0 D Creat Clearance w eGFR > 60 Random Glucose 92 Calcium 8.5 Total Bilirubin 0.3 D AST 14 L D ALT 16 Alkaline Phosphatase 129 H Total Protein 7.3 Albumin 3.9 Urine Color Yellow Urine Appearance Slcloudy Urine pH 5.0 D Ur Specific [place] 1.023 Urine Protein Negative Urine Glucose (UA) Negative Urine Ketones Negative Urine Blood 1+ H Urine Nitrite Negative Urine Bilirubin Negative Urine Urobilinogen Negative Ur Leukocyte Esterase Negative Urine WBC (Auto) 2 Urine RBC (Auto) 2 Ur Epithelial Cells Rare Urine Mucus Many Urine HCG, Qual Negative 08/16/17 18:05 RBC 3.73 MCV 85.6 MCHC 32.8 RDW 17.6 H MPV 8.1 Neutrophils % 49.5 Lymphocytes % 41.9 H Monocytes % 5.8 Eosinophils % 1.7 Basophils % 1.1 - Medications Given in the ED: ED Medications Discontinued Medications Generic Name Dose Route Start Last Admin Trade Name Eagleq PRN Reason Stop Dose Admin Ondansetron HCl 8 mg 08/16/17 22:39 08/16/17 23:04 Zofran Injection IVPB 08/16/17 22:40 8 mg ONCE ONE Administration Medical Decision Making - Medical Decision Making 08/17/17 03:54 Pt endorsed to me by Dr. Morrison at 2am shift change. I have discussed her CT results with her. Will obtain EKG to check her QTc prior to choosing antibiotic. *DC/Admit/Observation/Transfer Diagnosis at time of Disposition: Colitis - Discharge Dispostion Disposition: HOME Condition at time of disposition: Stable Admit: No - Prescriptions Prescriptions: Levofloxacin [Levaquin] 750 mg PO DAILY #7 tablet Metronidazole [Flagyl -] 500 mg PO TID #21 tablet - Referrals Referrals: Hawk Castellano MD [Primary Care Provider] - - Patient Instructions Printed Discharge Instructions: DI for Colitis - Post Discharge Activity
[2017-08-17] MEDS ORDERED: metroNIDAZOLE 250 MG TABLET PO ONE (04:33)
[2017-08-17] MEDS ORDERED: LEVOFLOXACIN 750 MG TABLET PO SCH (04:45)
[2017-08-17] MEDS ORDERED: LEVOFLOXACIN 500 MG TABLET (FP) ONE (05:14)
[2017-08-17] MEDS ORDERED: LEVOFLOXACIN 250 MG TABLET (FP) ONE (05:14)
[2017-08-17] MEDS ORDERED: metroNIDAZOLE 250 MG TABLET ONE (05:14)
--- NOTE | 2017-08-17 10:21 | EKG ---
Test Reason : Blood Pressure : / mmHG Vent. Rate : 051 BPM Atrial Rate : 051 BPM P-R Int : 166 ms QRS Dur : 082 ms QT Int : 420 ms P-R-T Axes : 025 045 064 degrees QTc Int : 387 ms SINUS BRADYCARDIA NONSPECIFIC T WAVE ABNORMALITY ABNORMAL ECG WHEN COMPARED WITH ECG OF 17-DEC-2016 11:14, VENT. RATE HAS DECREASED BY [address] NO LONGER DEPRESSED IN INFERIOR LEADS T WAVE INVERSION NO LONGER EVIDENT IN INFERIOR LEADS Confirmed by GEMA COOPER MD ([id number]) on 08/17/2017 10:20:59 AM Referred By: Confirmed By:GEMA COOPER MD
== END 2017-08-17 05:22 | disposition home or self-care (01) ==
LOC: JER 19:11
PROC: 3E0337Z Introduction of Electrolytic and Water Balance Substance into Peripheral Vein, Percutaneous Approach (ICD-10-PCS; principal; 2017-08-16)
PROC: 3E033GC Introduction of Other Therapeutic Substance into Peripheral Vein, Percutaneous Approach (ICD-10-PCS; 2017-08-16)
DX: K52.9 Noninfective gastroenteritis and colitis, unspecified (principal); Z98.84 Bariatric surgery status; Z90.49 Acquired absence of other specified parts of digestive tract
CPT/HCPCS: 36415; 74020-TC; 74177-TC; 80053; 81003; 81015; 84703; 85025; 93005; 93010; 99282-25

== ENCOUNTER 2017-08-22 12:23 | Emergency (ER) | payer OTHER ==
[2017-08-22 12:28] VITALS: BMI 21.3
--- NOTE | 2017-08-22 12:54 | PDOC ---
Attending Attestation - HPI HPI: 08/22/17 13:39 41 y.o female with significant past medical history of gastric sleeve bypass 2014, cholescectomy 2010, appendectomy, and 2 Csections, who presents to the emergency room complaining of 4 days of nausea, vomiting, diarrhea and epigastric pain. The patient was seen in the ED on 08/16/17 for epigastric pain and diarrhea, had an Abd CT and Xray, and was discharged on levaquin and flagyl for possible colitis. - Physicial Exam PE: 08/22/17 13:40 Constitutional: Awake, alert, oriented. No acute distress. Head: Normocephalic. Atraumatic Eyes: PERRL. EOMI. Conjunctivae are not pale. ENT: Mucous membranes are moist and intact. Posterior pharynx without exudates or erythema. Uvula midline. Neck: Supple. Full ROM. No lymphadenopathy. Cardiovascular: Regular rate. Regular rhythm. S1, S2 regular. Distal pulses are 2+ and symmetric. Pulmonary/Chest: No evidence of respiratory distress. Clear to auscultation bilaterally No wheezing, rales or rhonchi. Abdominal: +epigastric tenderness to palpation. +LUQ tenderness to palpation. Soft and non-distended. No rebound, guarding or rigidity. No organomegaly. No palpable masses. Good bowel sounds. Back: No CVA tenderness. Musculoskeletal: No edema. No cyanosis. No clubbing. Full range of motion in all extremities. Nocalf tenderness. Radial/pedal pulses are intact and 2+ bilaterally Skin: Skin is warm and dry. No petechiae. No purpura. Neurological: Alert and oriented to person, place, and time. Cranial nerves II -XII are grossly intact. Normal speech. Strength is grossly symmetric. No sensory deficits. Psychiatric: Good eye contact. Normal interaction, affect and behavior. <Dianna Cobos - Last Filed: 08/22/17 13:38> - Resident Resident Name: Aurora Flores - ED Attending Attestation I have performed the following: I have examined & evaluated the patient, The case was reviewed & discussed with the resident, I agree w/resident's findings & plan, Exceptions are as noted - Medical Decision Making 08/22/17 12:54 I, Dr. Nathalia Quevedo, DO, attest that this document has been prepared under my direction and personally reviewed by me in its entirety. I further attest, that it accurately reflects all work, treatment, procedures and medical decision -making performed by me. 08/22/17 16:41 a/p: 41yo female with n/v/d since -dx with suspected colitis on wednesday while in the ed -took 3 doses of abx and n/v/d started -epigastric abd pain -suspect more viral gastroenteritis with mild gastritis vs acute colitis -reviewed ct and xay findings -will recheck labs -abd exam benign except mild epigastric ttp, no rebound or guarding. 08/22/17 16:45 re-eval: pt feeling much better. attempting po challenge. nausea resolved. no abd pain. discussed stopping abx and all reasons to return to the ed. pt states she wants to go home if she is able to tolerate po. follows with dr babb discussed with the patient the need to arrange for follow up with dr babb for further eval pt agrees with the plan. <Nathalia Quevedo - Last Filed: 08/22/17 16:47>
[2017-08-22] MEDS ORDERED: ONDANSETRON 4 MG/2 ML VIAL IVPUSH ONE (13:01)
[2017-08-22] MEDS ORDERED: SODIUM CHLORIDE 0.9% 1000 ML INFUS.BAG IV ONE (13:01)
[2017-08-22] MEDS ORDERED: ONDANSETRON 4 MG/2 ML VIAL ONE (13:24)
--- NOTE | 2017-08-22 13:37 | PDOC ---
History of Present Illness - General Chief Complaint: Pain Stated Complaint: REVISIT/ ABD PAIN Time Seen by Provider: 08/22/17 12:51 - History of Present Illness Initial Comments: 41yo woman with PMH of gastric sleeve in 2014, lap shirley 2010, migraines, appendectomy, and 2 C sections presenting with increasing abdominal pain for the past two weeks and N/V/D. The abdominal pain is primarily in the epigastrum and radiates to the lower abdomen, crampy/achy in character, 5/10 severity that is worse after eating. She also admits to nausea and vomiting particularly when she attempts top ingest medications or food. She has had two episodes of non bilious, non bloody emesis after attempted ingestions each day for the past 5 days. She was seen in the ED [address] scanned for the same issue diagnosed clinically with colitis. However, she has not been able to keep her medication down and states that her nausea and vomiting have in fact worsened. She feels very dehydrated and hasn't eaten much food since these symptoms started. She reports chronic constipation. PCP: Dr. Castellano. GI: Dr. Ackerman 08/22/17 13:37 Past History - Past Medical History Allergies/Adverse Reactions: Allergies Allergy/AdvReac Type Severity Reaction Status Date / Time Penicillins Allergy Rash Verified 08/22/17 12:28 Home Medications: Ambulatory Orders Alprazolam [Xanax] 0.25 mg PO TID 06/05/16 Sertraline HCl [Zoloft] 100 mg PO ASDIR 08/29/16 Famotidine/Ca Carb/Mag Hydrox [[facility] Complete Tablet Chew] 1 each PO DAILY #20 tab.chew 08/22/17 Famotidine/Ca Carb/Mag Hydrox [[facility] Complete Tablet Chew] 1 each PO DAILY #30 tab.chew 08/22/17 Loperamide HCl [Imodium -] 2 mg PO Q8H #21 capsule 08/22/17 Loperamide HCl [Imodium -] 2 mg PO Q8H PRN #21 capsule 08/22/17 Ondansetron [Ondansetron Odt] 8 mg PO BID PRN #20 tab.rapdis 08/22/17 Anemia: Yes Asthma: No Cardiac Disorders: No COPD: No CHF: No Diabetes: No HTN: No Hypercholesterolemia: No Kidney Stones: No Psychiatric Problems: Yes (ANXIETY) - Surgical History Abdominal Surgery: Yes (Gastric sleeve 04/2015) Appendectomy: Yes Cholecystectomy: Yes GI Surgery: Yes (SLEEVE) - Immunization History Immunization Up to Date: Yes - Suicide/Smoking/Psychosocial Hx Smoking Status: No Smoking History: Never smoked Have you smoked in the past 12 months: No Number of Cigarettes Smoked Daily: 0 Hx Alcohol Use: Yes (SOCIAL) Drug/Substance Use Hx: No Substance Use Type: None Review of Systems - Review of Systems Constitutional: No: Chills, Fever Respiratory: No: Cough Cardiac (ROS): No: Chest Pain ABD/GI: Yes: Diarrhea, Nausea, Vomiting : No: Burning, Dysuria, Hematuria Musculoskeletal: No: Back Pain Integumentary: No: Bruising Neurological: Yes: Headache Psychiatric: Yes: Anxiety, Stressors *Physical Exam - Vital Signs Last Vital Signs Temp Pulse Resp BP Pulse Ox 98.0 F 69 20 126/73 100 08/22/17 12:25 08/22/17 12:25 08/22/17 12:25 08/22/17 12:25 08/22/17 12:25 - Physical Exam General Appearance: Yes: Nourished, Appropriately Dressed. No: Apparent Distress HEENT: positive: EOMI, LAURA, Normal ENT Inspection, Normal Voice Neck: positive: Trachea midline, Normal Thyroid, Supple. negative: Tender, Rigid Respiratory/Chest: positive: Lungs Clear, Normal Breath Sounds. negative: Chest Tender, Respiratory Distress, Accessory Muscle Use Cardiovascular: positive: Regular Rhythm, Regular Rate. negative: Murmur Gastrointestinal/Abdominal: positive: Tender (Epigastric tenderness but non peritoneal or surgical), Flat, Soft, Increased Bowel Sounds. negative: Normal Bowel Sounds Rectal Exam: positive: heme negative stool, normal exam Musculoskeletal: positive: Normal Inspection. negative: CVA Tenderness Extremity: positive: Normal Capillary Refill, Normal Inspection, Normal Range of Motion. negative: Tender Integumentary: positive: Normal Color, Dry, Warm Neurologic: positive: singe winder II-XII NML intact, Fully Oriented, Alert, Normal Mood/ Affect, Normal Response, Motor Strength 5/5 ED Treatment Course - LABORATORY CBC & Chemistry Diagram: 08/22/17 13:25 08/22/17 13:25 - Medications Given in the ED: ED Medications Discontinued Medications Generic Name Dose Route Start Last Admin Trade Name Freq PRN Reason Stop Dose Admin Ondansetron HCl 4 mg 08/22/17 13:01 08/22/17 13:35 Zofran Injection IVPUSH 08/22/17 13:02 4 mg ONCE ONE Administration Sodium Chloride 1,000 ml 08/22/17 13:01 08/22/17 13:35 Normal Saline - IV 08/22/17 13:02 1,000 ml ONCE ONE Administration Medical Decision Making - Medical Decision Making 41 year old female with recent ED visit for abdominal pain, nausea, vomiting, and diarrhea with worsening symptoms after being prescribed Flagyl and Levaquin. Patient was not taking any anti-emetics at home which likely could have helped her symptoms. In terms of the etiology of her GI symptoms, the soruce doesn't appear to be infectious and it could be related to her original gastric sleeve procedure although her CT abdomen with IV con 5 days prior did not demonstrate any obvious pathology. This leads to a non functional GI pathology such as IBS. Will draw basic labs and treat with IV fluids, famotidine , maalox, zofran, and will reassess. Not likely Appy or Shirley given the clinical exam and history of previous shirley. This could possibly be a viral gastroenteritis on top of some her presenting abdominal pain or a reaction to her medication. 08/22/17 17:32 Her labs are WNL with the exception of a K of 3.5. Will give one liter D5 1/2 with 20 meq K and PO challenge. 08/22/17 16:47 Patients symptoms drastically improved but still has diarrhea. Will DC antibiotics. Will give imodium and send home with prescription for imodium, famotidine, and Zofran then have her follow up with Meka her GI for possible endoscopy or IBS workup. 08/22/17 17:47 *DC/Admit/Observation/Transfer Diagnosis at time of Disposition: Gastroenteritis - Discharge Dispostion Disposition: HOME Condition at time of disposition: Improved Admit: No - Prescriptions Prescriptions: Famotidine/Ca Carb/Mag Hydrox [Cvs Complete Tablet Chew] 1 each PO DAILY #30 tab.chew Famotidine/Ca Carb/Mag Hydrox [[facility]vs Complete Tablet Chew] 1 each PO DAILY #20 tab.chew Loperamide HCl [Imodium -] 2 mg PO Q8H PRN #21 capsule PRN Reason: Nausea Loperamide HCl [Imodium -] 2 mg PO Q8H #21 capsule Ondansetron [Ondansetron Odt] 8 mg PO BID PRN #20 tab.rapdis PRN Reason: Nausea And/Or Vomiting - Referrals Referrals: Hawk Castellano MD [Primary Care Provider] - - Patient Instructions Printed Discharge Instructions: DI for Viral Gastroenteritis -- Adult, DI for Abdominal Pain-Adult Additional Instructions: We believe your symptoms should improve over the next few days but please take your medicines as prescribed. Please follow up with Dr. Ackerman on Wednesday for evaluation. Please stop taking your antibiotics as we don't feel that you have an infection. Please return to the ED if you have vomiting that prevents you from keeping down food despite the sherman of your medications. - Post Discharge Activity
[2017-08-22 13:46] LABS: BASOPHIL 1.2 % (0-2.0); EOSINOPHIL 2.1 % (0-4.5); MCH 27.8 pg (25.7-33.7); MCHC 32.5 g/dl (32.0-36.0); MEAN CELL VOLUME 85.8 fl (80-96); MEAN PLT VOLUME 8.1 fl (7.5-11.1); NEUTROPHILS 56.9 % (42.8-82.8); PLATELET COUNT 278 K/MM3 (134-434); RDW 18.3 % (11.6-15.6); WHITE BLOOD COUNT 6.6 K/mm3 (4.0-10.0)
[2017-08-22 14:12] LABS: ALBUMIN 4.3 g/dl (3.4-5.0); ALK PHOS 119 U/L (45-117); BILIRUBIN,TOTAL 0.4 mg/dL (0.2-1.0); CALCIUM 8.7 mg/dL (8.5-10.1); CO2 28 mmol/L (21-32); GLUCOSE,RANDOM 69 mg/dL (74-106); MAGNESIUM 2.3 mg/dL (1.8-2.4); SGOT/AST 16 U/L (15-37); SGPT/ALT 16 U/L (12-78); TOT PROT 7.4 g/dl (6.4-8.2)
[2017-08-22] MEDS ORDERED: MAG HYDROX/AL HYDROX/SIMETH 30 ML UNIT-DOSE CUP PO ONE (14:16)
[2017-08-22 14:21] LABS: ANION GAP 5 (8-16)
[2017-08-22] MEDS ORDERED: MAG HYDROX/AL HYDROX/SIMETH 30 ML UNIT-DOSE CUP ONE (14:22)
[2017-08-22] MEDS ORDERED: diphenhydrAMINE HCL 12.5 MG/5 ML UNIT-DOSE CUPS PO ONE (15:10)
[2017-08-22] MEDS ORDERED: LIDOCAINE VISCOUS 2% ORAL/TOP 20 ML UNIT-DOSE CUP MM ONE (15:12)
[2017-08-22] MEDS ORDERED: METOCLOPRAMIDE HCL INJECTION 10 MG/2 ML VIAL IVPUSH ONE (15:15)
[2017-08-22] MEDS ORDERED: FAMOTIDINE IV 20 MG/12 ML VIAL IVPUSH SCH (15:15)
[2017-08-22] MEDS ORDERED: D5-1/2NS+20 MEQ KCL - 20 MEQ/1,000 ML INFUS.BAG IV SCH (15:15)
[2017-08-22] MEDS ORDERED: diphenhydrAMINE HCL 12.5 MG/5 ML BULK BOTTLE ONE (15:21)
[2017-08-22] MEDS ORDERED: LIDOCAINE VISCOUS 2% ORAL/TOP 20 ML UNIT-DOSE CUP ONE (15:21)
[2017-08-22] MEDS ORDERED: METOCLOPRAMIDE HCL INJECTION 10 MG/2 ML VIAL ONE (15:22)
[2017-08-22] MEDS ORDERED: FAMOTIDINE 20 MG/50 ML IVPB 20 MG/50 ML MG IVPB ONE ×2 (15:22→17:47)
[2017-08-22 15:57] VITALS: BP 105/54; PULSE 61; TEMP 97.2
[2017-08-22] MEDS ORDERED: LOPERAMIDE HCL 1 MG/5 ML UNIT DOSE CUP PO ONE (17:35)
[2017-08-22] MEDS ORDERED: LOPERAMIDE HCL 2 MG CAPSULE PO ONE (17:38)
[2017-08-22] MEDS ORDERED: LOPERAMIDE HCL 2 MG CAPSULE ONE (17:38)
[2017-08-22] MEDS ORDERED: FAMOTIDINE IV 20 MG/12 ML VIAL IVPUSH ONE (17:38)
== END 2017-08-22 18:23 | disposition home or self-care (01) ==
LOC: JER 12:23
PROC: 3E0337Z Introduction of Electrolytic and Water Balance Substance into Peripheral Vein, Percutaneous Approach (ICD-10-PCS; principal; 2017-08-22)
PROC: 3E033GC Introduction of Other Therapeutic Substance into Peripheral Vein, Percutaneous Approach (ICD-10-PCS; 2017-08-22)
PROC: 3E033GC Introduction of Other Therapeutic Substance into Peripheral Vein, Percutaneous Approach (ICD-10-PCS; 2017-08-22)
PROC: 3E033GC Introduction of Other Therapeutic Substance into Peripheral Vein, Percutaneous Approach (ICD-10-PCS; 2017-08-22)
DX: K52.9 Noninfective gastroenteritis and colitis, unspecified (principal)
CPT/HCPCS: 36415; 80053; 82272; 83735; 85025; 99282-25

== ENCOUNTER 2018-01-11 20:46 | Emergency (ER) | payer OTHER ==
--- NOTE | 2018-01-11 21:10 | PDOC ---
Rapid Medical Evaluation Time Seen by Provider: 01/11/18 21:04 Medical Evaluation: Allergies Allergy/AdvReac Type Severity Reaction Status Date / Time Penicillins Allergy Rash Verified 12/24/17 08:54 01/11/18 21:04 I have performed a brief in-person evaluation of this patient. The patient presents with a chief complaint of s/p fall this afternoon at work. Patient reports feeling a little dizziness and left eye jumping before fall. States remember hitting the floor. Denies dizziness at present no nausea or vomiting. Pertinent physical exam finding are appears to be in pain right shoulder tender, pain with straight arm raise, +tenderness with palpation over right rib. I have ordered the following: xray of right shoulder and right rib, analgesia , hiv test The patient will proceed to the ED for further evaluation.
[2018-01-11 21:15] VITALS: BP 139/82; PULSE 67; TEMP 97.7; BMI 23.6
[2018-01-11] MEDS ORDERED: IBUPROFEN 600 MG TABLET (FP) PO ONE ×2 (21:46→22:33)
--- NOTE | 2018-01-11 23:18 | PDOC ---
History of Present Illness - History of Present Illness Initial Comments: 01/12/18 00:25 Patient is a 42 F, with PMHx of anemia, past surgical Hx of , gastric sleeve (3 yrs ago), tonsillectomy, appendectomy, gallbladder removal, breast reduction, , who presents today for injury s/p falling. Patient states that around 1:30 today she was at work and she fell suddenly hitting a chair/ desk. She reports tenderness to her right forearm, knee, shoulder and scapula. Denies hitting head. Reports LMP was 1 year ago. Denies taking pain medication. Allergies: penicillin <Genie Jones - Last Filed: 01/12/18 00:39> <Poonam Morrison - Last Filed: 01/12/18 02:08> - General Chief Complaint: Syncope/Near Syncope Stated Complaint: FALL INJURY Time Seen by Provider: 01/11/18 21:04 Past History <Genie Jones - Last Filed: 01/12/18 00:39> - Past Medical History Anemia: Yes Asthma: No Cardiac Disorders: No COPD: No CHF: No DVT: No Diabetes: No HTN: No Hypercholesterolemia: No Kidney Stones: No Psychiatric Problems: Yes (ANXIETY) - Surgical History Abdominal Surgery: Yes (Gastric sleeve 04/2015) Appendectomy: Yes Cholecystectomy: Yes GI Surgery: Yes (SLEEVE) - Immunization History Immunization Up to Date: Yes - Suicide/Smoking/Psychosocial Hx Smoking Status: No Smoking History: Never smoked Have you smoked in the past 12 months: No Number of Cigarettes Smoked Daily: 0 Information on smoking cessation initiated: No Hx Alcohol Use: No Drug/Substance Use Hx: No Substance Use Type: None <Poonam Morrison - Last Filed: 01/12/18 02:08> - Past Medical History Allergies/Adverse Reactions: Allergies Allergy/AdvReac Type Severity Reaction Status Date / Time Penicillins Allergy Rash Verified 01/11/18 22:30 Home Medications: Ambulatory Orders Ibuprofen [Motrin -] 600 mg PO TID #21 tablet 12/24/17 Oxycodone HCl/Acetaminophen [Percocet 5-325 mg Tablet] 1 tab PO Q6H PRN #12 tablet MDD 4 tabs 12/24/17 Quetiapine Fumarate [Seroquel -] 25 mg PO HS 12/24/17 Sertraline HCl [Zoloft] 150 mg PO HS 12/24/17 Trauma Specific PMHX - Complaint Specific PMHX Back Injury: Yes Neck Injury: No <PrincePoonam Emy - Last Filed: 01/12/18 02:08> Review of Systems - Review of Systems Comments:: 01/12/18 00:25 CONSTITUTIONAL: Absent: fever, chills, diaphoresis, generalized weakness, malaise, loss of appetite HEENT: Absent: rhinorrhea, nasal congestion, throat pain, throat swelling, difficulty swallowing, mouth swelling, ear pain, eye pain, visual changes CARDIOVASCULAR: Absent: chest pain, syncope, palpitations, irregular heart rate, lightheadedness , peripheral edema RESPIRATORY: Absent: cough, shortness of breath, dyspnea with exertion, orthopnea, wheezing, stridor, hemoptysis GASTROINTESTINAL: Absent: abdominal pain, abdominal distension, nausea, vomiting, diarrhea, constipation, melena, hematochezia GENITOURINARY: Absent: dysuria, frequency, urgency, hesitancy, hematuria, flank pain, genital pain MUSCULOSKELETAL: Present: right shoulder, scapula, forearm and knee pain. SKIN: Absent: rash, itching, pallor HEMATOLOGIC/IMMUNOLOGIC: Absent: easy bleeding, easy bruising, lymphadenopathy, frequent infections ENDOCRINE: Absent: unexplained weight gain, unexplained weight loss, heat intolerance, cold intolerance NEUROLOGIC: Present: loss of balance Absent: headache, focal weakness or paresthesias, dizziness, seizure, mental status changes, bladder or bowel incontinence PSYCHIATRIC: Absent: anxiety, depression, suicidal or homicidal ideation, hallucinations. <Genie Jones - Last Filed: 01/12/18 00:39> *Physical Exam - Vital Signs Last Vital Signs Temp Pulse Resp BP Pulse Ox 97.7 F 67 17 139/82 99 01/11/18 21:05 01/11/18 21:05 01/11/18 21:05 01/11/18 21:05 01/11/18 22:50 - Physical Exam Comments: 01/12/18 00:26 GENERAL: Well developed, well nourished. Awake and alert. No acute distress. HEENT: Normocephalic, atraumatic. PERRLA, EOMI. No conjunctival pallor. Sclera are non- icteric. Moist mucous membranes. Oropharynx is clear. NECK: Supple. Full ROM. No JVD. Carotid pulses 2+ and symmetric, without bruits. No thyromegaly. No lymphadenopathy. CARDIOVASCULAR: Regular rate and rhythm. No murmurs, rubs, or gallops. Distal pulses are 2+ and symmetric. PULMONARY: No evidence of respiratory distress. Lungs clear to auscultation bilaterally. No wheezing, rales or rhonchi. ABDOMINAL: Soft. Non-tender. Non-distended. No rebound or guarding. No organomegaly. Normoactive bowel sounds. MUSCULOSKELETAL No bruising on right posterior rib cage. Tenderness to right posterior rib cage. Tenderness to right knee forearm , shoulder and scapula. No flank pain. Normal range of motion at all joints. No bony deformities.. No CVA tenderness. EXTREMITIES: FROM. No cyanosis. No clubbing. No edema. No calf tenderness. SKIN: Warm and dry. Normal capillary refill. No rashes. No jaundice. NEUROLOGICAL: Alert, awake, appropriate. Cranial nerves 2-12 intact. No deficits to light touch and temperature in face, upper extremities and lower extremities. No motor deficits in the in face, upper extremities and lower extremities. Normoreflexic in the upper and lower extremities. Normal speech. Toes are down-going bilaterally. Gait is normal without ataxia. PSYCHIATRIC: Cooperative. Good eye contact. Appropriate mood and affect. <Genie Jones - Last Filed: 01/12/18 00:39> - Vital Signs Last Vital Signs Temp Pulse Resp BP Pulse Ox 97.7 F 67 17 139/82 99 01/11/18 21:05 01/11/18 21:05 01/11/18 21:05 01/11/18 21:05 01/11/18 22:50 <Poonam Morrison - Last Filed: 01/12/18 02:08> ED Treatment Course - RADIOLOGY Radiograph Interpretation: 01/12/18 00:39 X-ray b/l ribs Impression: No gross bone or soft tissue abnormality seen. X-ray right shoulder Impression: no gross rib fracture is identified Reported By: Gretchen Reyna MD [id number] - Medications Given in the ED: ED Medications Discontinued Medications Generic Name Dose Route Start Last Admin Trade Name Freq PRN Reason Stop Dose Admin Ibuprofen 600 mg 01/11/18 21:46 01/11/18 22:40 Motrin - PO 01/11/18 21:47 600 mg ONCE ONE Administration <Genie Jones - Last Filed: 01/12/18 00:39> - Medications Given in the ED: ED Medications Discontinued Medications Generic Name Dose Route Start Last Admin Trade Name Natalya PRN Reason Stop Dose Admin Ibuprofen 600 mg 01/11/18 21:46 01/11/18 22:40 Motrin - PO 01/11/18 21:47 600 mg ONCE ONE Administration <Poonam Morrison - Last Filed: 01/12/18 02:08> Medical Decision Making - Medical Decision Making 01/12/18 02:05 42-year-old woman stated she got up quickly from her desk at 1:30 the afternoon and fell hitting the right side of her arm and rib cage and abrading her knee. She immediately got up from the floor and continued on her day. Her story doesn 't reflect any true syncopal episode, but I did order order her an EKG but she left after receiving her pain meds No fracture or dislocation of her right shoulder No fracture noted on her ribs. Chest x-ray normal cardiac silhouette, no pneumothorax <Poonam Morrison - Last Filed: 01/12/18 02:08> *DC/Admit/Observation/Transfer - Attestations Scribe Attestion: 01/12/18 00:31 Documentation prepared by Genie Jones, acting as medical records secretary for Poonam Morrison MD. <Genie Jones - Last Filed: 01/12/18 00:39> <Poonam Morrison - Last Filed: 01/12/18 02:08> Diagnosis at time of Disposition: Contusion of rib on right side Qualifiers: Encounter type: initial encounter Qualified Code(s): S20.211A - Contusion of right front wall of thorax, initial encounter Arm abrasion Qualifiers: Encounter type: initial encounter Laterality: right Qualified Code(s): S40.811A - Abrasion of right upper arm, initial encounter Knee abrasion Qualifiers: Encounter type: initial encounter Laterality: right Qualified Code(s): S80.211A - Abrasion, right knee, initial encounter - Discharge Dispostion Disposition: HOME Condition at time of disposition: Stable - Referrals Referrals: Hawk Castellano MD [Primary Care Provider] - - Patient Instructions Printed Discharge Instructions: DI for Abrasion, DI for Shoulder Pain Additional Instructions: please take aleve or motrin or Tylenol for pain apply bacitracin to abrasions - Post Discharge Activity
== END 2018-01-12 00:51 | disposition home or self-care (01) ==
LOC: JER 20:46
DX: S20.211A Contusion of right front wall of thorax, initial encounter (principal); W01.190A Fall on same level from slipping, tripping and stumbling with subsequent striking against furniture, initial encounter; Y93.89 Activity, other specified; Y92.218 Other school as the place of occurrence of the external cause; Y99.0 Civilian activity done for income or pay; D64.9 Anemia, unspecified; F41.9 Anxiety disorder, unspecified
CPT/HCPCS: 36415; 71111-TC-FY; 73030-TC-RT-FY; 87389; 99284-25

== ENCOUNTER 2018-02-05 13:49 | Emergency (ER) | payer OTHER ==
[2018-02-05 13:56] VITALS: BP 138/80; PULSE 68; TEMP 97.8; BMI 23.6
--- NOTE | 2018-02-05 14:27 | PDOC ---
History of Present Illness - General Chief Complaint: Headache Stated Complaint: MIGRAINE HEADACHE Time Seen by Provider: 02/05/18 14:15 History Source: Patient Exam Limitations: No Limitations - History of Present Illness Initial Comments: 02/05/18 16:51 Patient is a 42-year-old female with past medical history of migraines. Who presents emergency department today for migraine headache. Patient states that her headache initially started last night became worse gradually. She states that this presents like her usual migraine headache. She states that the pain is on the right side and she tried taking 800 mg of Motrin with no relief. Admits to phonophobia and photophobia. She now rates the pain a 10 out of 10 and throbbing. Denies lightheadedness, dizziness, LOC, nausea, vomiting, fevers and chills. Past History - Travel Traveled outside of the country in the last 30 days: No Close contact w/someone who was outside of country & ill: No - Past Medical History Allergies/Adverse Reactions: Allergies Allergy/AdvReac Type Severity Reaction Status Date / Time Penicillins Allergy Rash Verified 02/05/18 13:56 Home Medications: Ambulatory Orders Quetiapine Fumarate [Seroquel -] 25 mg PO HS 12/24/17 Sertraline HCl [Zoloft] 150 mg PO HS 12/24/17 Anemia: Yes Asthma: No Cardiac Disorders: No COPD: No CHF: No DVT: No Diabetes: No HTN: No Hypercholesterolemia: No Kidney Stones: No Psychiatric Problems: Yes (ANXIETY) Other medical history: migraines - Surgical History Abdominal Surgery: Yes (Gastric sleeve 04/2015) Appendectomy: Yes Cholecystectomy: Yes GI Surgery: Yes (SLEEVE) - Immunization History Immunization Up to Date: Yes - Suicide/Smoking/Psychosocial Hx Smoking Status: No Smoking History: Never smoked Have you smoked in the past 12 months: No Number of Cigarettes Smoked Daily: 0 Hx Alcohol Use: No Drug/Substance Use Hx: No Substance Use Type: None Review of Systems - Review of Systems Able to Perform ROS?: Yes Comments:: 02/05/18 14:27 CONSTITUTIONAL: Absent: fever, chills, diaphoresis, generalized weakness, malaise, loss of appetite HEENT: Absent: rhinorrhea, nasal congestion, throat pain, throat swelling, difficulty swallowing, mouth swelling, ear pain, eye pain, visual Changes SKIN: Absent: rash, itching, pallor HEMATOLOGIC/IMMUNOLOGIC: Absent: easy bleeding, easy bruising, lymphadenopathy, frequent infections ENDOCRINE: Absent: unexplained weight gain, unexplained weight loss, heat intolerance, cold intolerance NEUROLOGIC: Present: headache, photophonbia, phonophobia Absent: focal weakness or paresthesias, dizziness, unsteady gait, seizure, mental status changes, bladder or bowel incontinence PSYCHIATRIC: Absent: anxiety, depression, suicidal or homicidal ideation, hallucinations. Is the patient limited Marshallese proficient: No *Physical Exam - Vital Signs Last Vital Signs Temp Pulse Resp BP Pulse Ox 97.8 F 68 18 138/80 99 02/05/18 13:53 02/05/18 13:53 02/05/18 13:53 02/05/18 13:53 02/05/18 13:53 - Physical Exam Comments: 02/05/18 14:27 GENERAL: Well developed, well nourished. Awake and alert. No acute distress. HEENT: Normocephalic, atraumatic. PERRLA, EOMI. No conjunctival pallor. Sclera are non- icteric. Moist mucous membranes. Oropharynx is clear. NECK: Supple. Full ROM. No JVD. Carotid pulses 2+ and symmetric, without bruits. No thyromegaly. No lymphadenopathy. MUSCULOSKELETAL Normal range of motion at all joints. No bony deformities or tenderness. No CVA tenderness. EXTREMITIES: No cyanosis. No clubbing. No edema. No calf tenderness. SKIN: Warm and dry. Normal capillary refill. No rashes. No jaundice. NEUROLOGICAL: Alert, awake, appropriate. Cranial nerves 2-12 intact. No deficits to light touch and temperature in face, upper extremities and lower extremities. No motor deficits in the in face, upper extremities and lower extremities. Normoreflexic in the upper and lower extremities. Normal speech. Toes are down- going bilaterally. Gait is normal without ataxia. PSYCHIATRIC: Cooperative. Good eye contact. Appropriate mood and affect. Medical Decision Making - Medical Decision Making 02/05/18 16:53 Patient is a 42-year-old female past medical history of migraines, who presents to the emergency department today with migraine headache. Patient states that this is like her usual headache. It started gradually and got worse over the next day and half. It was not thunderclap in nature. Patient is neurologically intact with no gross deficits. Patient given IV fluids, Reglan, Benadryl and Toradol with relief of her symptoms. We'll discharge home at this time. Return precautions given. Patient was as all discharge instructions and all questions were answered. *DC/Admit/Observation/Transfer Diagnosis at time of Disposition: Migraine Qualifiers: Migraine type: unspecified Status migrainosus presence: without status migrainosus Intractability: not intractable Qualified Code(s): G43.909 - Migraine, unspecified, not intractable, without status migrainosus - Discharge Dispostion Disposition: HOME Condition at time of disposition: Stable Decision to Admit order: No - Referrals Referrals: Hawk Castellano MD [Primary Care Provider] - - Patient Instructions Printed Discharge Instructions: DI for Migraine Additional Instructions: You were treated for your migraine today. Please drink plenty of fluids Get plenty of rest You may take Motrin 800 mg every 8 hours starting tomorrow. Do not exceed more than 3000 mg a day. Follow-up with her primary care doctor this week. Return to the emergency department if you have worsening headache, fevers, neck pain, lightheadedness, dizziness, loss of consciousness, or if you have any changes in your symptoms. - Post Discharge Activity Forms/Work/School Notes: Back to Work
[2018-02-05] MEDS ORDERED: SODIUM CHLORIDE 1,000 ML IV STA (14:32)
[2018-02-05] MEDS ORDERED: METOCLOPRAMIDE HCL INJECTION 10 MG/2 ML VIAL IVPB ONE (14:32)
[2018-02-05] MEDS ORDERED: METOCLOPRAMIDE HCL INJECTION 10 MG/2 ML VIAL ONE (14:45)
[2018-02-05] MEDS ORDERED: KETOROLAC TROMETHAMINE 30 MG/1 ML VIAL IVPUSH ONE (15:47)
[2018-02-05] MEDS ORDERED: KETOROLAC TROMETHAMINE 30 MG/1 ML VIAL ONE (15:48)
== END 2018-02-05 17:03 | disposition home or self-care (01) ==
LOC: JERFT 13:49
PROC: 3E0337Z Introduction of Electrolytic and Water Balance Substance into Peripheral Vein, Percutaneous Approach (ICD-10-PCS; principal; 2018-02-05)
PROC: 3E033GC Introduction of Other Therapeutic Substance into Peripheral Vein, Percutaneous Approach (ICD-10-PCS; 2018-02-05)
PROC: 3E0333Z Introduction of Anti-inflammatory into Peripheral Vein, Percutaneous Approach (ICD-10-PCS; 2018-02-05)
PROC: 3E033GC Introduction of Other Therapeutic Substance into Peripheral Vein, Percutaneous Approach (ICD-10-PCS; 2018-02-05)
DX: G43.909 Migraine, unspecified, not intractable, without status migrainosus (principal)
CPT/HCPCS: 99281-25; J7030

== ENCOUNTER 2018-05-15 14:47 | Emergency (ER) | payer OTHER ==
[2018-05-15 14:52] VITALS: BP 121/60; PULSE 74; TEMP 98.8; BMI 23.6
[2018-05-15] MEDS ORDERED: KETOROLAC TROMETHAMINE 60 MG/2 ML VIAL IM ONE (15:21)
[2018-05-15] MEDS ORDERED: KETOROLAC TROMETHAMINE 60 MG/2 ML VIAL ONE (15:22)
--- NOTE | 2018-05-15 15:23 | PDOC ---
History of Present Illness - General Chief Complaint: Head/Neck problem Stated Complaint: Head/Neck problem - History of Present Illness Initial Comments: 42-year-old female with a past medical history significant for anxiety she takes Xanax at home presents for evaluation of right-sided neck pain atraumatic and onset. She states she woke up like this this morning. She has some radicular symptoms into her right shoulder. 05/15/18 15:22 Past History - Past Medical History Allergies/Adverse Reactions: Allergies Allergy/AdvReac Type Severity Reaction Status Date / Time Penicillins Allergy Rash Verified 05/15/18 14:52 Home Medications: Ambulatory Orders Quetiapine Fumarate [Seroquel -] 25 mg PO HS 12/24/17 Sertraline HCl [Zoloft] 150 mg PO HS 12/24/17 Cyclobenzaprine HCl [Flexeril 10 mg] 10 mg PO HS PRN #10 tablet 05/15/18 Ibuprofen [Motrin -] 600 mg PO TID #30 tablet 05/15/18 Anemia: Yes Asthma: No Cardiac Disorders: No COPD: No CHF: No DVT: No Diabetes: No HTN: No Hypercholesterolemia: No Kidney Stones: No Psychiatric Problems: Yes (ANXIETY) - Surgical History Abdominal Surgery: Yes (Gastric sleeve 04/2015) Appendectomy: Yes Cholecystectomy: Yes GI Surgery: Yes (SLEEVE) - Immunization History Immunization Up to Date: Yes - Suicide/Smoking/Psychosocial Hx Smoking Status: No Smoking History: Never smoked Have you smoked in the past 12 months: No Number of Cigarettes Smoked Daily: 0 Information on smoking cessation initiated: No Hx Alcohol Use: No Drug/Substance Use Hx: No Substance Use Type: None Review of Systems - Review of Systems Musculoskeletal: Yes: Neck Pain All Other Systems: Reviewed and Negative *Physical Exam - Vital Signs Last Vital Signs Temp Pulse Resp BP Pulse Ox 98.8 F 74 16 121/60 100 05/15/18 14:50 05/15/18 14:50 05/15/18 14:50 05/15/18 14:50 05/15/18 14:50 - Physical Exam Comments: Cervical spine skin color and temperature are normal. Range of motion is slightly decreased. Range of motion is also slightly painful. She has mild tenderness about the right paracervical musculature. No midline tenderness. Mild tenderness mild and moderate tenderness over the right trapezium. She has 5 out of 5 strength in bilateral upper extremities without any gross sensorimotor deficits. She has a positive Spurling maneuver on the right negative on the left. She is neurovascularly intact upper extremity compartments are soft and nontender. 05/15/18 15:22 Medical Decision Making - Medical Decision Making This is a cervical strain I'll treat her with Toradol in the emergency room and reevaluate her progress. 05/15/18 15:23 05/15/18 15:37 Patient got relief with Toradol. *DC/Admit/Observation/Transfer Diagnosis at time of Disposition: Cervical strain - Discharge Dispostion Disposition: HOME Condition at time of disposition: Improved Decision to Admit order: No - Referrals Referrals: Hawk Castellano MD [Primary Care Provider] - Artie Oliver MD [Staff Physician] - - Patient Instructions Printed Discharge Instructions: DI for Cervical Muscle Strain Additional Instructions: Turned to the emergency room should symptoms worsen or go unresolved. Follow-up with spine surgery in 1-2 days for further evaluation and treatment options. Take the anti-inflammatory with food and discontinue the medication of bothers her stomach. At tablet is 3 times a day. The muscle relaxer I prescribed make sleepy will be one tablet before bedtime. - Post Discharge Activity
== END 2018-05-15 15:51 | disposition home or self-care (01) ==
LOC: JERFT 14:47
PROC: 3E0233Z Introduction of Anti-inflammatory into Muscle, Percutaneous Approach (ICD-10-PCS; principal; 2018-05-15)
DX: S16.1XXA Strain of muscle, fascia and tendon at neck level, initial encounter (principal); X50.1XXA Overexertion from prolonged static or awkward postures, initial encounter; Y93.89 Activity, other specified; Y92.038 Other place in apartment as the place of occurrence of the external cause; Y99.8 Other external cause status
CPT/HCPCS: 99281-25

== ENCOUNTER 2018-06-22 18:58 | Emergency (ER) | payer OTHER ==
[2018-06-22 19:03] VITALS: BP 118/50; PULSE 59; TEMP 97.7; BMI 23.6
--- NOTE | 2018-06-22 19:03 | PDOC ---
Rapid Medical Evaluation Time Seen by Provider: 06/22/18 19:01 Medical Evaluation: Allergies Allergy/AdvReac Type Severity Reaction Status Date / Time Penicillins Allergy Rash Verified 05/15/18 14:52 06/22/18 19:01 I have performed a brief in-person evaluation of this patient. The patient presents with a chief complaint of:urinary discomfort with increase vaginal discharge. LMP 2 weeks ago Pertinent physical exam findings:none I have ordered the following:urine , UA, urine culture, chlamydia/GC The patient will proceed to the ED for further evaluation.
[2018-06-22] MEDS ORDERED: AZITHROMYCIN 250 MG TABLET PO ONE (19:26)
--- NOTE | 2018-06-22 19:29 | PDOC ---
History of Present Illness - General Chief Complaint: Urinary Problem Stated Complaint: urinary burning Time Seen by Provider: 06/22/18 19:01 - History of Present Illness Initial Comments: 42-year-old female without comorbidities presents for evaluation of vaginal discharge and dysuria symptoms such as urgency and pressure 2 days. She has no systemic symptoms. She is monogamous in her heterosexual relationship but is unsure about her partner. She would also like HIV testing and she would like to be treated for gonorrhea and chlamydia. Of note she is ALLERGIC to penicillin however she has tolerated cephalosporins in the past without adverse effects 06/22/18 19:27 Past History - Past Medical History Allergies/Adverse Reactions: Allergies Allergy/AdvReac Type Severity Reaction Status Date / Time Penicillins Allergy Rash Verified 06/22/18 19:03 Home Medications: Ambulatory Orders Quetiapine Fumarate [Seroquel -] 25 mg PO HS 12/24/17 Sertraline HCl [Zoloft] 150 mg PO HS 12/24/17 Aripiprazole [Abilify -] 10 mg PO DAILY 06/22/18 Anemia: Yes Asthma: No Cardiac Disorders: No COPD: No CHF: No DVT: No Diabetes: No HTN: No Hypercholesterolemia: No Kidney Stones: No Psychiatric Problems: Yes (ANXIETY) - Surgical History Abdominal Surgery: Yes (Gastric sleeve 04/2015) Appendectomy: Yes Cholecystectomy: Yes GI Surgery: Yes (SLEEVE) - Immunization History Immunization Up to Date: Yes - Suicide/Smoking/Psychosocial Hx Smoking Status: No Smoking History: Never smoked Have you smoked in the past 12 months: No Number of Cigarettes Smoked Daily: 0 Information on smoking cessation initiated: No Hx Alcohol Use: No Drug/Substance Use Hx: No Substance Use Type: None Review of Systems - Review of Systems : Yes: See HPI, Discharge, Urgency All Other Systems: Reviewed and Negative *Physical Exam - Vital Signs Last Vital Signs Temp Pulse Resp BP Pulse Ox 97.7 F 59 L 17 118/50 L 100 06/22/18 19:02 06/22/18 19:02 06/22/18 19:02 06/22/18 19:02 06/22/18 19:02 - Physical Exam Comments: HEAD: NC/AT EYES: Conjuntiva clear NEUROLOGIC: No gross sensory or motor deficits, NVID SKIN: Normal color and temperature no lesions or rashes Patient has elected to deferred vaginal and pelvic examination to her TECHNOLOGY SERVICES MANAGER 06/22/18 19:28 *DC/Admit/Observation/Transfer Diagnosis at time of Disposition: Possible exposure to STD - Discharge Dispostion Disposition: HOME Condition at time of disposition: Stable Decision to Admit order: No - Referrals Referrals: Hawk Castellano MD [Primary Care Provider] - - Patient Instructions Printed Discharge Instructions: Chlamydia: The Silent STD, How to Detect and Treat STDs, Facts About Sexually Transmitted Infections Additional Instructions: Return to the emergency room should he develop any other symptoms. As discussed will follow-up with your [facility] in family practice doctor for further evaluation and treatment options as well as a pelvic examination. You treated for gonorrhea and chlamydia tonight. Please follow-up in one to 2 days for further evaluation and treatment options with your primary care physician and OB /TECHNOLOGY SERVICES MANAGER. - Post Discharge Activity
[2018-06-22 19:33] LABS: URINE APPEARANCE CLEAR; URINE BILIRUBIN NEGATIVE (<2.0 mg/dL); URINE COLOR STRAW; URINE GLUCOSE (UA) NEGATIVE (NEGATIVE); URINE KETONE NEGATIVE (NEGATIVE); URINE LEUK ESTERASE NEGATIVE (NEGATIVE); URINE NITRITE NEGATIVE (NEGATIVE); URINE PROTEIN NEGATIVE (NEGATIVE); URINE UROBILINOGEN NEGATIVE mg/dL (0.2-1.0)
[2018-06-22 19:36] LABS: HCG,QUALITATIVE URINE Negative
[2018-06-22] MEDS ORDERED: AZITHROMYCIN 500 MG TABLET ONE (19:45)
== END 2018-06-22 21:36 | disposition home or self-care (01) ==
LOC: JERFT 18:58
DX: Z20.2 Contact with and (suspected) exposure to infections with a predominantly sexual mode of transmission (principal); Z88.0 Allergy status to penicillin
CPT/HCPCS: 36415; 81003; 84703; 87086; 87389; 87491; 87591; 99281-25

== ENCOUNTER 2019-01-16 21:33 | Emergency (ER) | payer OTHER ==
[2019-01-16 22:08] VITALS: BP 113/71; PULSE 85; TEMP 98.1; BMI 29.2
--- NOTE | 2019-01-16 22:34 | PDOC ---
History of Present Illness - General Chief Complaint: Injury Stated Complaint: FALL Time Seen by Provider: 01/16/19 22:33 - History of Present Illness Initial Comments: 01/17/19 06:32 patient was not evaluated by this provider Past History - Past Medical History Allergies/Adverse Reactions: Allergies Allergy/AdvReac Type Severity Reaction Status Date / Time Penicillins Allergy Rash Verified 01/16/19 22:08 Home Medications: Ambulatory Orders Quetiapine Fumarate [Seroquel -] 25 mg PO HS 12/24/17 Sertraline HCl [Zoloft] 150 mg PO HS 12/24/17 Aripiprazole [Abilify -] 10 mg PO DAILY 06/22/18 Methocarbamol [Robaxin -] 500 mg PO TID PRN #21 tablet 01/17/19 Anemia: Yes Asthma: No Cardiac Disorders: No COPD: No CHF: No DVT: No Diabetes: No HTN: No Hypercholesterolemia: No Kidney Stones: No Psychiatric Problems: Yes (ANXIETY) - Surgical History Abdominal Surgery: Yes (Gastric sleeve 04/2015) Appendectomy: Yes Cholecystectomy: Yes GI Surgery: Yes (SLEEVE) - Immunization History Immunization Up to Date: Yes - Suicide/Smoking/Psychosocial Hx Smoking Status: No Smoking History: Never smoked Have you smoked in the past 12 months: No Number of Cigarettes Smoked Daily: 0 Information on smoking cessation initiated: No Hx Alcohol Use: No Drug/Substance Use Hx: No Substance Use Type: None *Physical Exam - Vital Signs Last Vital Signs Temp Pulse Resp BP Pulse Ox 98.1 F 85 18 113/71 100 01/16/19 22:05 01/16/19 22:05 01/16/19 22:05 01/16/19 22:05 01/16/19 22:05 ED Treatment Course - LABORATORY CBC & Chemistry Diagram: 01/16/19 22:50 01/16/19 22:50 *DC/Admit/Observation/Transfer Diagnosis at time of Disposition: Fracture of humeral head, right, closed - Discharge Dispostion Disposition: HOME Condition at time of disposition: Stable - Prescriptions Prescriptions: Methocarbamol [Robaxin -] 500 mg PO TID PRN #21 tablet PRN Reason: Muscle Spasms - Referrals Referrals: Josué Rod DO [Staff Physician] - Hawk Castellano MD [Primary Care Provider] - - Patient Instructions Printed Discharge Instructions: How to Use a Sling, DI for Shoulder Fracture - Post Discharge Activity Forms/Work/School Notes: Back to Work
[2019-01-16] MEDS ORDERED: morphine CARPU-JECT 4 MG/1 ML DISP.SYRIN IVPUSH ONE (22:40)
[2019-01-16 23:01] LABS: BASO % 1.3 % (0-2.0); EOS % 0.7 % (0-4.5); HEMATOCRIT 28.4 % (32.4-45.2); LYMPH % 16.7 % (8-40); MCH 25.9 pg (25.7-33.7); MCHC 31.6 g/dl (32.0-36.0); MEAN CELL VOLUME 81.9 fl (80-96); MEAN PLT VOLUME 7.8 fl (7.5-11.1); MONO % 4.1 % (3.8-10.2); NEUT % 77.2 % (42.8-82.8); PLATELET COUNT 409 K/MM3 (134-434); RBC 3.46 M/mm3 (3.60-5.2); RDW 16.7 % (11.6-15.6); WHITE BLOOD COUNT 9.1 K/mm3 (4.0-10.0)
[2019-01-16] MEDS ORDERED: morphine SULFATE 4 MG/ML VIAL ONE (23:03)
[2019-01-16 23:15] LABS: INR 1.07 (0.83-1.09); PROTHROMBIN TIME (PATIENT) 12.6 SEC (9.7-13.0)
--- NOTE | 2019-01-16 23:17 | PDOC ---
History of Present Illness - General Chief Complaint: Injury Stated Complaint: FALL Time Seen by Provider: 01/16/19 22:33 History Source: Patient Exam Limitations: No Limitations - History of Present Illness Initial Comments: 01/16/19 23:11 43F with a PMH of anxiety who presents to the ER after having a fall. The patient states that she got caught up on a telephone wire, tripped, and fell on the footboard of her bed, which went in her R underarm. She complains of pain in her lateral shoulder and tingling that radiates down to her second and third fingers on her R side. She denies any other complaints. She denies LOC and head trauma. Past History - Past Medical History Allergies/Adverse Reactions: Allergies Allergy/AdvReac Type Severity Reaction Status Date / Time Penicillins Allergy Rash Verified 01/16/19 22:08 Home Medications: Ambulatory Orders Quetiapine Fumarate [Seroquel -] 25 mg PO HS 12/24/17 Sertraline HCl [Zoloft] 150 mg PO HS 12/24/17 Aripiprazole [Abilify -] 10 mg PO DAILY 06/22/18 Methocarbamol [Robaxin -] 500 mg PO TID PRN #21 tablet 01/17/19 Anemia: Yes Asthma: No Cardiac Disorders: No COPD: No CHF: No DVT: No Diabetes: No HTN: No Hypercholesterolemia: No Kidney Stones: No Psychiatric Problems: Yes (ANXIETY) - Surgical History Abdominal Surgery: Yes (Gastric sleeve 04/2015) Appendectomy: Yes Cholecystectomy: Yes GI Surgery: Yes (SLEEVE) - Immunization History Immunization Up to Date: Yes - Suicide/Smoking/Psychosocial Hx Smoking Status: No Smoking History: Never smoked Have you smoked in the past 12 months: No Number of Cigarettes Smoked Daily: 0 Information on smoking cessation initiated: No Hx Alcohol Use: No Drug/Substance Use Hx: No Substance Use Type: None Review of Systems - Review of Systems Able to Perform ROS?: Yes Comments:: 01/16/19 23:14 GENERAL/CONSTITUTIONAL: No fever or chills. No weakness. HEAD, EYES, EARS, NOSE AND THROAT: No change in vision. No ear pain or discharge. No sore throat. CARDIOVASCULAR: No chest pain, palpitations, or lightheadedness. RESPIRATORY: No cough, wheezing, shortness of breath, or hemoptysis. GASTROINTESTINAL: No nausea, vomiting, diarrhea, constipation, or abdominal pain. GENITOURINARY: No dysuria, frequency, hematuria, or change in urination. MUSCULOSKELETAL: + for R shoulder pain. No neck or back pain. SKIN: No rash or lesions. NEUROLOGIC: No headache, numbness, tingling, focal weakness, loss of consciousness, or change in strength/sensation. Is the patient limited Upper Sorbian proficient: No *Physical Exam - Vital Signs Last Vital Signs Temp Pulse Resp BP Pulse Ox 98.1 F 85 18 113/71 100 01/16/19 22:05 01/16/19 22:05 01/16/19 22:05 01/16/19 22:05 01/16/19 22:05 - Physical Exam Comments: 01/16/19 23:17 GENERAL: Well developed, well nourished. Awake and alert. HEENT: Normocephalic, atraumatic. Hearing grossly normal. Moist mucous membranes. PERRLA, EOMI. No conjunctival pallor. NECK: Supple. Full ROM. No JVD. MUSCULOSKELETAL: No ROM in R shoulder. TTP over lateral aspect of R shoulder. Neurovascularly intact in R arm. Radial pulse 2+. EXTREMITIES: No cyanosis. No clubbing. No edema. No calf tenderness or swelling. SKIN: Warm and dry. Normal capillary refill. No rashes. No jaundice. NEUROLOGICAL: Alert, awake, appropriate. Cranial nerves 2-12 grossly intact. Normal speech. Gait is normal without ataxia. PSYCHIATRIC: Cooperative. Good eye contact. Appropriate mood and affect. ED Treatment Course - LABORATORY CBC & Chemistry Diagram: 01/16/19 22:50 01/16/19 22:50 - ADDITIONAL ORDERS Additional order review: 01/16/19 22:50 RBC 3.46 L MCV 81.9 MCHC 31.6 L RDW 16.7 H MPV 7.8 Neutrophils % 77.2 D Lymphocytes % 16.7 D Monocytes % 4.1 Eosinophils % 0.7 Basophils % 1.3 - Medications Given in the ED: ED Medications Discontinued Medications Generic Name Dose Route Start Last Admin Trade Name Freq PRN Reason Stop Dose Admin Morphine Sulfate 4 mg 01/16/19 22:40 01/16/19 23:07 Morphine Injection - IVPUSH 01/16/19 22:41 4 mg ONCE ONE Administration Medical Decision Making - Medical Decision Making 01/16/19 23:18 43F with a PMH of anxiety who presents with R shoulder pain after a fall. XR of R shoulder shows possible avulsion fracture of head of humerus. Giving morphine for pain control. Pt currently in sling and cannot range her shoulder. Ortho has been paged. Pending labs and call back from ortho. 01/16/19 23:58 Pt signed out to Dr. Tilley, pending orthopedics call back. *DC/Admit/Observation/Transfer Diagnosis at time of Disposition: Fracture of humeral head, right, closed Qualifiers: Encounter type: initial encounter Qualified Code(s): S42.291A - Other displaced fracture of upper end of right humerus, initial encounter for closed fracture - Discharge Dispostion Disposition: HOME Condition at time of disposition: Stable - Prescriptions Prescriptions: Methocarbamol [Robaxin -] 500 mg PO TID PRN #21 tablet PRN Reason: Muscle Spasms - Referrals Referrals: Josué Rod DO [Staff Physician] - Hawk Castellano MD [Primary Care Provider] - - Patient Instructions Printed Discharge Instructions: How to Use a Sling, DI for Shoulder Fracture - Post Discharge Activity Forms/Work/School Notes: Back to Work
[2019-01-16 23:30] LABS: ALBUMIN 4.1 g/dl (3.4-5.0); ALK PHOS 168 U/L (45-117); ANION GAP 6 MMOL/L (8-16); BILIRUBIN,TOTAL 0.2 mg/dL (0.2-1); BLOOD UREA NITROGEN 15 mg/dL (7-18); CHLORIDE 107 mmol/L (98-107); CO2 25 mmol/L (21-32); CREATININE 0.8 mg/dL (0.55-1.3); GLUCOSE,RANDOM 98 mg/dL (74-106); POTASSIUM 4.3 mmol/L (3.5-5.1); SGOT/AST 22 U/L (15-37); SGPT/ALT 19 U/L (13-61); SODIUM 138 mmol/L (136-145); TOT PROT 7.8 g/dl (6.4-8.2)
--- NOTE | 2019-01-16 23:41 | PDOC ---
*Physical Exam - Vital Signs Last Vital Signs Temp Pulse Resp BP Pulse Ox 98.1 F 85 18 113/71 100 01/16/19 22:05 01/16/19 22:05 01/16/19 22:05 01/16/19 22:05 01/16/19 22:05 - Physical Exam Comments: A&Ox3, in no acute distress Ambulating w/ stable gait in ED RUE in sling; sensation to light touch intact b/l b/l radial pulse 2+ credit collections manager strength 5/5 b/l 01/17/19 01:02 ED Treatment Course - LABORATORY CBC & Chemistry Diagram: 01/16/19 22:50 01/16/19 22:50 - ADDITIONAL ORDERS Additional order review: Laboratory Results 01/16/19 01/16/19 22:50 22:50 PT with INR 12.60 INR 1.07 Sodium 138 Potassium 4.3 Chloride 107 Carbon Dioxide 25 Anion Gap 6 L BUN 15 Creatinine 0.8 Creat Clearance w eGFR 78.29 Random Glucose 98 Calcium 9.0 Total Bilirubin 0.2 AST 22 ALT 19 Alkaline Phosphatase 168 H Total Protein 7.8 Albumin 4.1 01/16/19 22:50 RBC 3.46 L MCV 81.9 MCHC 31.6 L RDW 16.7 H MPV 7.8 Neutrophils % 77.2 D Lymphocytes % 16.7 D Monocytes % 4.1 Eosinophils % 0.7 Basophils % 1.3 - Medications Given in the ED: ED Medications Discontinued Medications Generic Name Dose Route Start Last Admin Trade Name Eagleq PRN Reason Stop Dose Admin Morphine Sulfate 4 mg 01/16/19 22:40 01/16/19 23:07 Morphine Injection - IVPUSH 01/16/19 22:41 4 mg ONCE ONE Administration Medical Decision Making - Medical Decision Making Pt in sling w/ R humeral lateral head fx Robaxin 500mg PO once for muscle spasm Pt denies any sensation change at this time Pt N/V intact distally 01/16/19 23:34 Lidoderm patch and Tylenol for pain 01/17/19 00:48 Rx for Robaxin sent to pt's pharmacy Referral for ortho given Sling provided and instructions given Plan for D/C w/ PCP and ortho f/u Discharge instructions and return precautions given Pt in agreement and verbalized understanding Dispo: home 01/17/19 01:00 *DC/Admit/Observation/Transfer Diagnosis at time of Disposition: Fracture of humeral head, right, closed Qualifiers: Encounter type: initial encounter Qualified Code(s): S42.291A - Other displaced fracture of upper end of right humerus, initial encounter for closed fracture - Discharge Dispostion Disposition: HOME Condition at time of disposition: Stable Decision to Admit order: No - Prescriptions Prescriptions: Methocarbamol [Robaxin -] 500 mg PO TID PRN #21 tablet PRN Reason: Muscle Spasms - Referrals Referrals: Josué Rod DO [Staff Physician] - Hawk Castellano MD [Primary Care Provider] - - Patient Instructions Printed Discharge Instructions: How to Use a Sling, DI for Shoulder Fracture - Post Discharge Activity Forms/Work/School Notes: Back to Work
[2019-01-16] MEDS ORDERED: METHOCARBAMOL 500 MG TABLET ONE (23:44)
[2019-01-16] MEDS ORDERED: METHOCARBAMOL 500 MG TABLET PO ONE (23:44)
[2019-01-17] MEDS ORDERED: ACETAMINOPHEN 325 MG TABLET (FP) PO ONE (00:47)
[2019-01-17] MEDS ORDERED: LIDOCAINE 5% TOPICAL PATCH TP ONE (00:47)
[2019-01-17] MEDS ORDERED: LIDOCAINE 5% TOPICAL PATCH ONE (00:48)
[2019-01-17] MEDS ORDERED: ACETAMINOPHEN 325 MG TABLET (FP) ONE (00:48)
[2019-01-17] MEDS ORDERED: LIDOCAINE PATCH REMOVAL MC SCH (22:00)
== END 2019-01-17 01:04 | disposition home or self-care (01) ==
LOC: JER 21:33
PROC: 3E033NZ Introduction of Analgesics, Hypnotics, Sedatives into Peripheral Vein, Percutaneous Approach (ICD-10-PCS; principal; 2019-01-16)
DX: S42.291A Other displaced fracture of upper end of right humerus, initial encounter for closed fracture (principal); W01.190A Fall on same level from slipping, tripping and stumbling with subsequent striking against furniture, initial encounter; Y93.89 Activity, other specified; Y92.032 Bedroom in apartment as the place of occurrence of the external cause; Y99.8 Other external cause status
CPT/HCPCS: 36415; 73030-TC-RT-FY; 80053; 85025; 85610; 86850; 86900; 86901; 99281-25

== ENCOUNTER 2021-04-10 13:36 | Emergency (ER) | payer OTHER ==
[2021-04-10 14:07] VITALS: BP 127/81; PULSE 82; TEMP 97.8; BMI 31.1
[2021-04-10] MEDS ORDERED: ALPRAZolam 1 MG TABLET PO PRN (14:46)
[2021-04-10] MEDS ORDERED: ALPRAZolam 0.25 MG TABLET ONE ×2 (15:28→18:35)
[2021-04-10] MEDS ORDERED: ALPRAZolam 0.25 MG TABLET PO ONE (17:28)
== END 2021-04-10 19:56 | disposition home or self-care (01) ==
LOC: JER 13:36
DX: F41.9 Anxiety disorder, unspecified (principal)
CPT/HCPCS: 93005; 93010; 99284-25

== ENCOUNTER 2021-07-15 12:00 | Observation (INO) | payer OTHER ==
[2021-07-15] MEDS ORDERED: METOCLOPRAMIDE HCL INJECTION 10 MG/2 ML VIAL IVPB ONE (12:41)
[2021-07-15] MEDS ORDERED: ACETAMINOPHEN 1000 MG/100 ML VIAL IVPB ONE (12:41)
[2021-07-15] MEDS ORDERED: SODIUM CHLORIDE 0.9% 1000 ML INFUS.BAG IV ONE (12:41)
[2021-07-15] MEDS ORDERED: METOCLOPRAMIDE HCL INJECTION 10 MG/2 ML VIAL ONE (12:53)
[2021-07-15] MEDS ORDERED: ACETAMINOPHEN INJECTION 100 ML IVPB ONE (12:53)
[2021-07-15 13:53] LABS: BASO % 1.3 % (0-2.0); EOS % 1.4 % (0-4.5); HEMOGLOBIN 8.8 GM/dL (10.7-15.3); LYMPH % 29.5 % (8-40); MCH 26.9 pg (25.7-33.7); MCHC 32.7 g/dl (32.0-36.0); MEAN CELL VOLUME 82.4 fl (80-96); MEAN PLT VOLUME 7.3 fl (7.5-11.1); MONO % 5.9 % (3.8-10.2); NEUT % 61.9 % (42.8-82.8); PLATELET COUNT 429 10^3/uL (134-434); RBC 3.27 M/mm3 (3.60-5.2); RDW 18.8 % (11.6-15.6); WHITE BLOOD COUNT 8.1 K/mm3 (4.0-10.0)
[2021-07-15 13:54] LABS: PROTHROMBIN TIME (PATIENT) 11.7 SEC (9.7-13.0)
[2021-07-15 13:57] LABS: ACTIVATED PTT 30.2 SECONDS (25.2-36.5)
[2021-07-15 14:30] LABS: EPI CELLS 4 /uL (0-25.1); HYALINE CASTS 0 /uL (0-3.1); URINE APPEARANCE CLEAR; URINE BACTERIA 8 /uL (0-1359); URINE BILIRUBIN NEGATIVE (NEGATIVE); URINE COLOR YELLOW; URINE GLUCOSE (UA) NEGATIVE (NEGATIVE); URINE KETONE NEGATIVE (NEGATIVE); URINE LEUK ESTERASE TRACE (NEGATIVE); URINE NITRITE NEGATIVE (NEGATIVE); URINE PROTEIN NEGATIVE (NEGATIVE); URINE RBC 7 /uL (0-23.9); URINE UROBILINOGEN 0.2 mg/dL (0.2-1.0); URINE WBC 5 /uL (0-25.8)
[2021-07-15 14:58] LABS: CHLORIDE 108 mmol/L (98-107); SODIUM 142 mmol/L (136-145)
[2021-07-15 15:00] LABS: CALCIUM 9.3 mg/dL (8.5-10.1)
[2021-07-15 15:01] LABS: ALBUMIN 3.3 g/dl (3.4-5.0); ANION GAP 8 MMOL/L (8-16); BLOOD UREA NITROGEN 8.4 mg/dL (7-18); CO2 25 mmol/L (21-32); GLUCOSE,RANDOM 82 mg/dL (74-106)
[2021-07-15] MEDS ORDERED: DEXAMETHASONE SOD PHOSPHATE 20 MG/5 ML VIAL IVPB ONE (15:03)
[2021-07-15 15:04] LABS: CHOLESTEROL 281 mg/dL (50-200); CREATININE 0.6 mg/dL (0.55-1.3); SGOT/AST 25 U/L (15-37); SGPT/ALT 29 U/L (13-61)
[2021-07-15 15:05] LABS: BILIRUBIN,TOTAL 0.2 mg/dL (0.2-1); LDL CHOLESTEROL (ONLY SJRH) 184 mg/dL (5-100); TOT PROT 6.9 g/dl (6.4-8.2); TRIGLYCERIDES 148 mg/dL (0-150)
[2021-07-15 15:06] LABS: HDL CHOLESTEROL 48 mg/dL (40-60)
[2021-07-15 15:07] LABS: ALK PHOS 172 U/L (45-117)
[2021-07-15] MEDS ORDERED: DEXAMETHASONE SOD PHOSPHATE 4 MG/1 ML VIAL ONE (15:13)
[2021-07-15] MEDS ORDERED: MAGNESIUM 1GM/D5W - 1 GM/100 ML IVPB IVPB ONE (15:13)
[2021-07-15] MEDS ORDERED: LORazepam 2 MG/ML SDV VIAL IVPB ONE (15:28)
[2021-07-15] MEDS ORDERED: LORazepam 2 MG/ML SDV VIAL ONE ×2 (15:56→17:18)
[2021-07-15] MEDS ORDERED: LORazepam 2 MG/ML SDV VIAL IVPUSH ONE (17:39)
[2021-07-15 22:00] VITALS: BMI 31.6
[2021-07-15] MEDS ORDERED: QUEtiapine FUMARATE 25 MG TABLET PO SCH (22:00)
[2021-07-16 08:38] LABS: BASO % 0.3 % (0-2.0); EOS % 0.1 % (0-4.5); HEMATOCRIT 28.1 % (32.4-45.2); HEMOGLOBIN 9.2 GM/dL (10.7-15.3); LYMPH % 15.4 % (8-40); MCH 26.8 pg (25.7-33.7); MCHC 32.7 g/dl (32.0-36.0); MEAN PLT VOLUME 7.3 fl (7.5-11.1); MONO % 4.6 % (3.8-10.2); NEUT % 79.6 % (42.8-82.8); PLATELET COUNT 428 10^3/uL (134-434); RBC 3.43 M/mm3 (3.60-5.2); RDW 18.4 % (11.6-15.6); WHITE BLOOD COUNT 10.5 K/mm3 (4.0-10.0)
[2021-07-16 09:02] LABS: CALCIUM 8.7 mg/dL (8.5-10.1)
[2021-07-16] MEDS ORDERED: PT OWN MED DRAWER 7, Y5N ONE ×2 (09:02→12:34)
[2021-07-16 09:03] LABS: ALBUMIN 3.2 g/dl (3.4-5.0)
[2021-07-16 09:06] LABS: CREATININE 0.7 mg/dL (0.55-1.3)
[2021-07-16 09:08] LABS: BILIRUBIN,TOTAL 0.3 mg/dL (0.2-1); TOT PROT 6.8 g/dl (6.4-8.2)
[2021-07-16 09:15] VITALS: BP 112/64; PULSE 87; TEMP 98
[2021-07-16] MEDS ORDERED: ARIPiprazole 10 MG TABLET PO SCH (10:00)
[2021-07-16] MEDS ORDERED: ACETAMINOPHEN 325 MG TABLET (FP) PO PRN (10:19)
[2021-07-16] MEDS ORDERED: ONDANSETRON 4 MG/2 ML VIAL IVPUSH PRN (10:21)
[2021-07-16] MEDS ORDERED: KETOROLAC TROMETHAMINE 30 MG/1 ML VIAL IVPB PRN (10:31)
[2021-07-16] MEDS ORDERED: TOPIRAMATE 25 MG TABLET PO SCH ×2 (11:30→22:00)
== END 2021-07-16 19:00 | disposition home or self-care (01) ==
LOC: JER 12:00 → JERBED 15:04 → UNDOADMOB 15:04 → J7W 18:38 → JERBED 18:38 → OBSVTOIN 20:38 → INTOOBSV 20:38 → J7W 07-16 12:52 → JERBED 07-16 12:52
PROVIDERS: ADMIT Internal Medicine; ATTEND Internal Medicine
PROC: 3E033GC Introduction of Other Therapeutic Substance into Peripheral Vein, Percutaneous Approach (ICD-10-PCS; principal; 2021-07-16)
PROC: 3E033NZ Introduction of Analgesics, Hypnotics, Sedatives into Peripheral Vein, Percutaneous Approach (ICD-10-PCS; 2021-07-16)
PROC: 3E0337Z Introduction of Electrolytic and Water Balance Substance into Peripheral Vein, Percutaneous Approach (ICD-10-PCS; 2021-07-16)
DX: G43.909 Migraine, unspecified, not intractable, without status migrainosus (principal); R20.2 Paresthesia of skin; F41.9 Anxiety disorder, unspecified; D64.9 Anemia, unspecified; E78.5 Hyperlipidemia, unspecified; E66.8 Other obesity; Z68.31 Body mass index [BMI] 31.0-31.9, adult; Z90.49 Acquired absence of other specified parts of digestive tract; Z88.0 Allergy status to penicillin
CPT/HCPCS: 36415; 70450-TC; 70544-TC; 70551-TC; 80053; 80061; 81003; 82550; 83036; 84484; 85025; 85610; 85730; 86850; 86900; 86901; 93005; 93010; 99285-25; C9803; G0378; J0131; U0003; U0005

== ENCOUNTER 2021-08-26 19:54 | Emergency (ER) | payer OTHER ==
[2021-08-26 20:10] VITALS: BP 112/78; PULSE 78; TEMP 98.5; BMI 31.5
[2021-08-26] MEDS ORDERED: SODIUM CHLORIDE 1,000 ML IV STA (21:01)
[2021-08-26] MEDS ORDERED: ACETAMINOPHEN 1000 MG/100 ML VIAL IVPB ONE (21:02)
[2021-08-26] MEDS ORDERED: ONDANSETRON 4 MG/2 ML VIAL IVPUSH ONE (21:15)
[2021-08-26] MEDS ORDERED: ONDANSETRON 4 MG/2 ML VIAL ONE (21:34)
[2021-08-26] MEDS ORDERED: ACETAMINOPHEN INJECTION 100 ML IVPB ONE (21:34)
[2021-08-26 22:12] LABS: EOS % 1.3 % (0-4.5); HEMATOCRIT 30.4 % (32.4-45.2); HEMOGLOBIN 9.9 GM/dL (10.7-15.3); LYMPH % 30.3 % (8-40); MCH 26.8 pg (25.7-33.7); MCHC 32.5 g/dl (32.0-36.0); MEAN CELL VOLUME 82.4 fl (80-96); MEAN PLT VOLUME 6.7 fl (7.5-11.1); MONO % 5.4 % (3.8-10.2); PLATELET COUNT 535 10^3/uL (134-434); WHITE BLOOD COUNT 10.1 K/mm3 (4.0-10.0)
[2021-08-26 22:14] LABS: URINE APPEARANCE CLEAR; URINE BILIRUBIN NEGATIVE (NEGATIVE); URINE COLOR YELLOW; URINE GLUCOSE (UA) NEGATIVE (NEGATIVE); URINE KETONE NEGATIVE (NEGATIVE); URINE LEUK ESTERASE NEGATIVE (NEGATIVE); URINE NITRITE NEGATIVE (NEGATIVE); URINE PROTEIN NEGATIVE (NEGATIVE); URINE UROBILINOGEN 0.2 mg/dL (0.2-1.0)
[2021-08-26 22:16] LABS: HCG,QUALITATIVE URINE Negative
[2021-08-26 22:31] LABS: CHLORIDE 107 mmol/L (98-107); SODIUM 141 mmol/L (136-145)
[2021-08-26 22:33] LABS: CALCIUM 9.1 mg/dL (8.5-10.1)
[2021-08-26 22:34] LABS: ALBUMIN 3.8 g/dl (3.4-5.0); ANION GAP 8 MMOL/L (8-16); BLOOD UREA NITROGEN 9.5 mg/dL (7-18); CO2 26 mmol/L (21-32); GLUCOSE,RANDOM 84 mg/dL (74-106); LIPASE 156 U/L (73-393)
[2021-08-26 22:36] LABS: SGPT/ALT 26 U/L (13-61)
[2021-08-26 22:37] LABS: CREATININE 0.9 mg/dL (0.55-1.3); SGOT/AST 19 U/L (15-37)
[2021-08-26 22:38] LABS: BILIRUBIN,TOTAL 0.2 mg/dL (0.2-1); TOT PROT 7.7 g/dl (6.4-8.2)
[2021-08-26 22:39] LABS: ALK PHOS 208 U/L (45-117)
[2021-08-27] MEDS ORDERED: SUCRALFATE 1 GM TABLET (FP) ONE (00:15)
[2021-08-27] MEDS ORDERED: SUCRALFATE 1 GM/10 ML UNIT DOSE CUPS PO ONE (23:45)
== END 2021-08-27 01:55 | disposition home or self-care (01) ==
LOC: JER 19:54
PROC: 3E0333Z Introduction of Anti-inflammatory into Peripheral Vein, Percutaneous Approach (ICD-10-PCS; principal; 2021-08-26)
PROC: 3E033GC Introduction of Other Therapeutic Substance into Peripheral Vein, Percutaneous Approach (ICD-10-PCS; 2021-08-26)
PROC: 3E033GC Introduction of Other Therapeutic Substance into Peripheral Vein, Percutaneous Approach (ICD-10-PCS; 2021-08-26)
DX: K29.00 Acute gastritis without bleeding (principal); R07.9 Chest pain, unspecified
CPT/HCPCS: 36415; 71046-TC-FY; 80053; 81003; 83690; 84484; 84703; 85025; 93005; 93010; 99285-25; J0131

== ENCOUNTER 2021-09-14 12:49 | Emergency (ER) | payer OTHER ==
[2021-09-14 13:03] VITALS: BP 116/70; TEMP 98.5; BMI 29.6
[2021-09-14 14:03] VITALS: PULSE 92
== END 2021-09-14 15:00 | disposition home or self-care (01) ==
LOC: JER 12:49
DX: B34.9 Viral infection, unspecified (principal)
CPT/HCPCS: 71045-TC-FY; 87804; 99284-25; C9803; U0003; U0005

== ENCOUNTER 2021-09-24 12:53 | Emergency (ER) | payer OTHER ==
[2021-09-24 14:33] VITALS: BP 115/57; PULSE 80; TEMP 98.1; BMI 22.3
[2021-09-24] MEDS ORDERED: diphenhydrAMINE HCL 50 MG CAPSULE PO ONE (15:24)
[2021-09-24] MEDS ORDERED: DEXAMETHASONE LIQUID 0.5 MG/5 ML PO ONE (15:24)
[2021-09-24] MEDS ORDERED: diphenhydrAMINE HCL 25 MG CAPSULE (FP) PO ONE (15:36)
[2021-09-24] MEDS ORDERED: DEXAMETHASONE SOD PHOSPHATE 10 MG/1 ML VIAL ONE (15:36)
== END 2021-09-24 15:43 | disposition home or self-care (01) ==
LOC: JER 12:53
DX: R21 Rash and other nonspecific skin eruption (principal)
CPT/HCPCS: 99283-25

== ENCOUNTER 2022-04-14 18:25 | Emergency (ER) | payer OTHER ==
[2022-04-14 18:35] VITALS: BP 120/81; PULSE 78; RESP 18; TEMP 98; BMI 32.1
[2022-04-14] MEDS ORDERED: ACETAMINOPHEN 1000 MG/100 ML BAG IVPB ONE (20:31)
[2022-04-14] MEDS ORDERED: LACTATED RINGERS SOLUTION 1000 ML INFUS.BAG IV ONE (20:31)
[2022-04-14] MEDS ORDERED: ONDANSETRON 4 MG/2 ML VIAL IVPUSH ONE (20:31)
[2022-04-14] MEDS ORDERED: ACETAMINOPHEN INJECTION 100 ML IVPB ONE (20:47)
[2022-04-14] MEDS ORDERED: ONDANSETRON 4 MG/2 ML VIAL ONE (20:48)
[2022-04-14 20:56] LABS: BASO % 1.2 % (0-2.0); EOS % 2.2 % (0-4.5); HEMATOCRIT 29.2 % (32.4-45.2); HEMOGLOBIN 9.3 GM/dL (10.7-15.3); LYMPH % 34.2 % (8-40); MCH 26.1 pg (25.7-33.7); MCHC 31.9 g/dl (32.0-36.0); MEAN CELL VOLUME 81.6 fl (80-96); MEAN PLT VOLUME 6.8 fl (7.5-11.1); NEUT % 57.4 % (42.8-82.8); PLATELET COUNT 494 10^3/uL (134-434); RBC 3.57 M/mm3 (3.60-5.2); RDW 19.2 % (11.6-15.6); WHITE BLOOD COUNT 9.9 K/mm3 (4.0-10.0)
[2022-04-14 21:25] LABS: CALCIUM 8.7 mg/dL (8.5-10.1)
[2022-04-14 21:26] LABS: ALBUMIN 3.6 g/dl (3.4-5.0)
[2022-04-14 21:29] LABS: CREATININE 0.8 mg/dL (0.55-1.3)
[2022-04-14 21:30] LABS: BILIRUBIN,TOTAL 0.2 mg/dL (0.2-1); TOT PROT 7.4 g/dl (6.4-8.2)
[2022-04-14] MEDS ORDERED: LIDOCAINE PATCH REMOVAL MC SCH (22:00)
[2022-04-14] MEDS ORDERED: morphine SULFATE 4 MG/ML VIAL ONE (22:08)
[2022-04-14] MEDS ORDERED: morphine CARPU-JECT 4 MG/1 ML DISP.SYRIN IVPUSH ONE (22:18)
[2022-04-14] MEDS ORDERED: LIDOCAINE 5% TOPICAL PATCH ONE (22:19)
[2022-04-14] MEDS ORDERED: LIDOCAINE 5% TOPICAL PATCH TP ONE (22:20)
[2022-04-14] MEDS ORDERED: DEXAMETHASONE SOD PHOSPHATE 10 MG/1 ML VIAL IVPUSH ONE (22:25)
[2022-04-14 22:31] LABS: EPI CELLS 9 /uL (0-25.1); HYALINE CASTS 1 /uL (0-3.1); PH,URINE 5.5 (5.0-8.0); URINE APPEARANCE CLEAR; URINE BACTERIA 238 /uL (0-1359); URINE BILIRUBIN NEGATIVE (NEGATIVE); URINE COLOR YELLOW; URINE GLUCOSE (UA) NEGATIVE (NEGATIVE); URINE KETONE NEGATIVE (NEGATIVE); URINE LEUK ESTERASE 1+ (NEGATIVE); URINE NITRITE NEGATIVE (NEGATIVE); URINE PROTEIN NEGATIVE (NEGATIVE); URINE RBC 7 /uL (0-23.9); URINE WBC 33 /uL (0-25.8)
[2022-04-14] MEDS ORDERED: DEXAMETHASONE SOD PHOSPHATE 10 MG/1 ML VIAL ONE (22:39)
== END 2022-04-14 23:08 | disposition home or self-care (01) ==
LOC: JER 18:25
PROC: 3E0333Z Introduction of Anti-inflammatory into Peripheral Vein, Percutaneous Approach (ICD-10-PCS; principal; 2022-04-14)
PROC: 3E033GC Introduction of Other Therapeutic Substance into Peripheral Vein, Percutaneous Approach (ICD-10-PCS; 2022-04-14)
PROC: 3E033NZ Introduction of Analgesics, Hypnotics, Sedatives into Peripheral Vein, Percutaneous Approach (ICD-10-PCS; 2022-04-14)
PROC: 3E033GC Introduction of Other Therapeutic Substance into Peripheral Vein, Percutaneous Approach (ICD-10-PCS; 2022-04-14)
DX: R82.71 Bacteriuria (principal); M54.50 Low back pain, unspecified
CPT/HCPCS: 74176-TC; 80053; 81003; 85025; 87086; 99284-25; J1100

== ENCOUNTER 2022-04-23 18:07 | Emergency (ER) | payer OTHER ==
[2022-04-23 18:34] VITALS: BP 121/61; PULSE 83; RESP 18; TEMP 97.9; BMI 32.1
[2022-04-23] MEDS ORDERED: KETOROLAC TROMETHAMINE 30 MG/1 ML VIAL IVPUSH ONE (19:58)
[2022-04-23] MEDS ORDERED: SODIUM CHLORIDE 1,000 ML IV STA (19:58)
[2022-04-23] MEDS ORDERED: METOCLOPRAMIDE HCL INJECTION 10 MG/2 ML VIAL IVPUSH ONE (19:58)
[2022-04-23] MEDS ORDERED: KETOROLAC TROMETHAMINE 30 MG/1 ML VIAL ONE (20:27)
[2022-04-23] MEDS ORDERED: METOCLOPRAMIDE HCL INJECTION 10 MG/2 ML VIAL ONE (20:27)
[2022-04-23 20:54] LABS: BASO % 0.4 % (0-2.0); EOS % 1.9 % (0-4.5); HEMATOCRIT 28.5 % (32.4-45.2); HEMOGLOBIN 9.2 GM/dL (10.7-15.3); LYMPH % 31.6 % (8-40); MCH 25.7 pg (25.7-33.7); MCHC 32.4 g/dl (32.0-36.0); MEAN CELL VOLUME 79.3 fl (80-96); MEAN PLT VOLUME 6.5 fl (7.5-11.1); MONO % 6.4 % (3.8-10.2); NEUT % 59.7 % (42.8-82.8); PLATELET COUNT 500 10^3/uL (134-434); RDW 18.9 % (11.6-15.6); WHITE BLOOD COUNT 10.7 K/mm3 (4.0-10.0)
[2022-04-23 21:16] LABS: ALBUMIN 3.6 g/dl (3.4-5.0); BLOOD UREA NITROGEN 8.6 mg/dL (7-18); CALCIUM 9.2 mg/dL (8.5-10.1)
[2022-04-23 21:19] LABS: CREATININE 0.8 mg/dL (0.55-1.3)
[2022-04-23 21:21] LABS: BILIRUBIN,TOTAL 0.2 mg/dL (0.2-1); TOT PROT 7.2 g/dl (6.4-8.2)
[2022-04-23] MEDS ORDERED: diazePAM 5 MG TABLET PO ONE (21:36)
[2022-04-23] MEDS ORDERED: ACETAMINOPHEN 500 MG TABLET (FP) PO ONE (21:36)
[2022-04-23] MEDS ORDERED: diazePAM 5 MG TABLET ONE (22:00)
[2022-04-23] MEDS ORDERED: ACETAMINOPHEN 500 MG TABLET (FP) ONE (22:00)
== END 2022-04-23 23:30 | disposition home or self-care (01) ==
LOC: JER 18:07
PROC: 3E033GC Introduction of Other Therapeutic Substance into Peripheral Vein, Percutaneous Approach (ICD-10-PCS; principal; 2022-04-23)
PROC: 3E0333Z Introduction of Anti-inflammatory into Peripheral Vein, Percutaneous Approach (ICD-10-PCS; 2022-04-23)
PROC: 3E033GC Introduction of Other Therapeutic Substance into Peripheral Vein, Percutaneous Approach (ICD-10-PCS; 2022-04-23)
PROC: 3E0337Z Introduction of Electrolytic and Water Balance Substance into Peripheral Vein, Percutaneous Approach (ICD-10-PCS; 2022-04-23)
DX: G44.86 Cervicogenic headache (principal)
CPT/HCPCS: 0241U-QW; 36415; 80053; 85025; 99284-25

== ENCOUNTER 2022-07-15 19:18 | Emergency (ER) | payer OTHER ==
[2022-07-15 19:54] VITALS: BP 130/75; PULSE 67; RESP 19; TEMP 98.7; BMI 32.1
[2022-07-15] MEDS ORDERED: KETOROLAC TROMETHAMINE 15 MG/ML VIAL IVPUSH ONE (23:24)
[2022-07-15] MEDS ORDERED: LACTATED RINGERS SOLUTION 1000 ML INFUS.BAG IV ONE (23:24)
[2022-07-15] MEDS ORDERED: KETOROLAC TROMETHAMINE 15 MG/ML VIAL ONE (23:40)
[2022-07-16 00:14] LABS: BASO % 0.9 % (0-2.0); EOS % 1.7 % (0-4.5); HEMATOCRIT 30.6 % (32.4-45.2); HEMOGLOBIN 9.8 GM/dL (10.7-15.3); LYMPH % 35.2 % (8-40); MCH 26.6 pg (25.7-33.7); MEAN CELL VOLUME 83.1 fl (80-96); MONO % 5.9 % (3.8-10.2); NEUT % 56.3 % (42.8-82.8); PLATELET COUNT 406 10^3/uL (134-434); RBC 3.69 M/mm3 (3.60-5.2); RDW 19.9 % (11.6-15.6); WHITE BLOOD COUNT 9.1 K/mm3 (4.0-10.0)
[2022-07-16 00:33] LABS: ALBUMIN 3.7 g/dl (3.4-5.0); BLOOD UREA NITROGEN 12.3 mg/dL (7-18); CALCIUM 8.7 mg/dL (8.5-10.1)
[2022-07-16 00:36] LABS: CREATININE 0.9 mg/dL (0.55-1.3)
[2022-07-16 00:38] LABS: BILIRUBIN,TOTAL 0.2 mg/dL (0.2-1); TOT PROT 7.3 g/dl (6.4-8.2)
[2022-07-16 00:58] LABS: EPI CELLS 12 /uL (0-25.1); HYALINE CASTS 1 /uL (0-3.1); URINE APPEARANCE CLEAR; URINE BACTERIA 174 /uL (0-1359); URINE BILIRUBIN NEGATIVE (NEGATIVE); URINE COLOR YELLOW; URINE GLUCOSE (UA) NEGATIVE (NEGATIVE); URINE KETONE TRACE (NEGATIVE); URINE LEUK ESTERASE 1+ (NEGATIVE); URINE NITRITE NEGATIVE (NEGATIVE); URINE PROTEIN NEGATIVE (NEGATIVE); URINE RBC 12 /uL (0-23.9); URINE WBC 37 /uL (0-25.8)
[2022-07-16] MEDS ORDERED: CEFTRIAXONE 1 GM in DEXTROSE 5%-WATER - 100 ML IVPB ONE (01:20)
[2022-07-16] MEDS ORDERED: ACETAMINOPHEN 1000 MG/100 ML BAG IVPB ONE (01:35)
[2022-07-16] MEDS ORDERED: CEFTRIAXONE 1 GM/50 ML BAG ONE (02:03)
[2022-07-16] MEDS ORDERED: ACETAMINOPHEN 325 MG TABLET (FP) ONE (02:06)
[2022-07-16] MEDS ORDERED: ACETAMINOPHEN INJECTION 100 ML IVPB ONE (02:08)
[2022-07-16 04:17] LABS: URINE CRYSTALS FEW /hpf
== END 2022-07-16 03:05 | disposition home or self-care (01) ==
LOC: JERFT 19:18 → JER 19:18
PROC: 3E033GC Introduction of Other Therapeutic Substance into Peripheral Vein, Percutaneous Approach (ICD-10-PCS; principal; 2022-07-15)
DX: N39.0 Urinary tract infection, site not specified (principal)
CPT/HCPCS: 36415; 74176-TC; 80053; 81003; 85025; 87086; 99285-25

== ENCOUNTER 2022-08-03 08:18 | Emergency (ER) | payer OTHER ==
[2022-08-03 08:32] VITALS: BP 129/50; PULSE 61; RESP 18; TEMP 97.8; BMI 32.1
[2022-08-03 12:00] LABS: EPI CELLS 9 /uL (0-25.1); HYALINE CASTS 1 /uL (0-3.1); URINE APPEARANCE CLEAR; URINE BACTERIA 20 /uL (0-1359); URINE BILIRUBIN NEGATIVE (NEGATIVE); URINE COLOR YELLOW; URINE GLUCOSE (UA) NEGATIVE (NEGATIVE); URINE KETONE NEGATIVE (NEGATIVE); URINE LEUK ESTERASE TRACE (NEGATIVE); URINE NITRITE NEGATIVE (NEGATIVE); URINE PROTEIN NEGATIVE (NEGATIVE); URINE RBC 17 /uL (0-23.9); URINE UROBILINOGEN 0.2 mg/dL (0.2-1.0); URINE WBC 11 /uL (0-25.8)
== END 2022-08-03 12:22 | disposition home or self-care (01) ==
LOC: JERFT 08:18
DX: A09 Infectious gastroenteritis and colitis, unspecified (principal)
CPT/HCPCS: 81003; 87086; 99283-25

== ENCOUNTER 2022-08-07 15:31 | Emergency (ER) | payer OTHER ==
[2022-08-07 15:55] VITALS: BP 111/58; PULSE 83; RESP 18; TEMP 97.8; BMI 32.1
== END 2022-08-07 19:01 | disposition home or self-care (01) ==
LOC: JER 15:31
DX: B34.9 Viral infection, unspecified (principal)
CPT/HCPCS: 0241U-QW; 99283-25

== ENCOUNTER 2022-08-24 17:32 | Emergency (ER) | payer SELFPAY ==
[2022-08-24 18:00] VITALS: BP 118/47; PULSE 56; RESP 18; TEMP 98.1; BMI 22.8
[2022-08-24 20:37] LABS: BASO % 0.3 % (0-2.0); EOS % 1.6 % (0-4.5); HEMATOCRIT 32.9 % (32.4-45.2); HEMOGLOBIN 10.7 GM/dL (10.7-15.3); LYMPH % 36.7 % (8-40); MCH 27.1 pg (25.7-33.7); MCHC 32.4 g/dl (32.0-36.0); MEAN CELL VOLUME 83.6 fl (80-96); MEAN PLT VOLUME 8.1 fl (7.5-11.1); MONO % 7.3 % (3.8-10.2); NEUT % 54.1 % (42.8-82.8); PLATELET COUNT 425 10^3/uL (134-434); RBC 3.94 M/mm3 (3.60-5.2); RDW 19.6 % (11.6-15.6); WHITE BLOOD COUNT 9.5 K/mm3 (4.0-10.0)
[2022-08-24 20:40] LABS: ALBUMIN 3.7 g/dl (3.4-5.0); BLOOD UREA NITROGEN 11.2 mg/dL (7-18)
[2022-08-24 20:43] LABS: CREATININE 0.8 mg/dL (0.55-1.3)
[2022-08-24 20:44] LABS: TOT PROT 7.1 g/dl (6.4-8.2)
[2022-08-24 20:45] LABS: BILIRUBIN,TOTAL 0.3 mg/dL (0.2-1)
[2022-08-24] MEDS ORDERED: SODIUM CHLORIDE 0.9% 500 ML INFUS.BAG IV ONE (21:14)
[2022-08-24 21:31] LABS: HIV INTERPRETATION NEGATIVE (NEGATIVE)
== END 2022-08-24 23:30 | disposition home or self-care (01) ==
LOC: JER 17:32
DX: B34.9 Viral infection, unspecified (principal)
CPT/HCPCS: 0241U-QW; 36415; 80053; 85025; 86618; 87389; 87798; 99284-25

== ENCOUNTER 2022-09-21 17:23 | Inpatient (IN) | payer SELFPAY ==
[2022-09-21] MEDS ORDERED: SODIUM CHLORIDE 0.9% 500 ML INFUS.BAG IV ONE (20:16)
[2022-09-21] MEDS ORDERED: METOCLOPRAMIDE HCL INJECTION 10 MG/2 ML VIAL ONE (21:09)
[2022-09-21] MEDS: METOCLOPRAMIDE HCL INJECTION 10 MG/2 ML VIAL IVPUSH ONE ×2 (21:11→21:23)
[2022-09-21] MEDS ORDERED: KETOROLAC TROMETHAMINE 15 MG/ML VIAL IVPUSH ONE (21:19)
[2022-09-21] MEDS ORDERED: KETOROLAC TROMETHAMINE 15 MG/ML VIAL ONE (21:24)
[2022-09-21] MEDS ORDERED: diphenhydrAMINE HCL 50 MG CAPSULE PO ONE (21:31)
[2022-09-21] MEDS ORDERED: DEXAMETHASONE 4 MG TABLET (FP) PO ONE (21:37)
[2022-09-21] MEDS ORDERED: DEXAMETHASONE 4 MG TABLET (FP) ONE (21:48)
[2022-09-21] MEDS ORDERED: diphenhydrAMINE HCL 25 MG CAPSULE (FP) PO ONE (21:48)
[2022-09-22] MEDS ORDERED: HYDROmorphone HCL CARPU-JECT 2 MG/1 ML DISP.SYRIN IVPB ONE (00:15)
[2022-09-22] MEDS ORDERED: ONDANSETRON 4 MG/2 ML VIAL IVPB ONE (00:16)
[2022-09-22] MEDS ORDERED: HYDROmorphone HCl 2 MG/ML VIAL ONE (00:35)
[2022-09-22] MEDS ORDERED: ONDANSETRON 4 MG/2 ML VIAL ONE (00:35)
[2022-09-22 03:00] LABS: HEMATOCRIT 32.3 % (32.4-45.2); HEMOGLOBIN 10.2 GM/dL (10.7-15.3); MCH 26.9 pg (25.7-33.7); MCHC 31.7 g/dl (32.0-36.0); MEAN PLT VOLUME 7.5 fl (7.5-11.1); PLATELET COUNT 377 10^3/uL (134-434); RDW 19.4 % (11.6-15.6); WHITE BLOOD COUNT 7.5 K/mm3 (4.0-10.0)
[2022-09-22 03:16] LABS: CALCIUM 8.1 mg/dL (8.5-10.1)
[2022-09-22 03:17] LABS: ALBUMIN 3.3 g/dl (3.4-5.0); BLOOD UREA NITROGEN 8.8 mg/dL (7-18)
[2022-09-22 03:20] LABS: CREATININE 0.8 mg/dL (0.55-1.3)
[2022-09-22 03:22] LABS: BILIRUBIN,TOTAL 0.2 mg/dL (0.2-1); TOT PROT 6.7 g/dl (6.4-8.2)
[2022-09-22 04:53] VITALS: BMI 28.9
[2022-09-22 05:28] LABS: EPI CELLS 15 /uL (0-25.1); HYALINE CASTS 1 /uL (0-3.1); PH,URINE 6.5 (5.0-8.0); URINE APPEARANCE CLEAR; URINE BACTERIA 27 /uL (0-1359); URINE BILIRUBIN NEGATIVE (NEGATIVE); URINE COLOR YELLOW; URINE GLUCOSE (UA) NEGATIVE (NEGATIVE); URINE KETONE NEGATIVE (NEGATIVE); URINE LEUK ESTERASE TRACE (NEGATIVE); URINE NITRITE NEGATIVE (NEGATIVE); URINE PROTEIN NEGATIVE (NEGATIVE); URINE RBC 21 /uL (0-23.9); URINE WBC 31 /uL (0-25.8)
[2022-09-22] MEDS ORDERED: ONDANSETRON 4 MG/2 ML VIAL IVPUSH PRN (09:02)
[2022-09-22] MEDS ORDERED: DEXTROSE 5%-0.45% SALINE 1,000 ML IV SCH (09:15)
[2022-09-22 09:23] LABS: BASO % 0.1 % (0-2.0); HEMATOCRIT 31.3 % (32.4-45.2); HEMOGLOBIN 9.9 GM/dL (10.7-15.3); LYMPH % 11.5 % (8-40); MCHC 31.7 g/dl (32.0-36.0); MEAN CELL VOLUME 85.2 fl (80-96); MEAN PLT VOLUME 7.5 fl (7.5-11.1); MONO % 1.8 % (3.8-10.2); NEUT % 86.6 % (42.8-82.8); PLATELET COUNT 457 10^3/uL (134-434); RBC 3.68 M/mm3 (3.60-5.2); WHITE BLOOD COUNT 8.7 K/mm3 (4.0-10.0)
[2022-09-22] MEDS ORDERED: KETOROLAC TROMETHAMINE 30 MG/1 ML VIAL IVPUSH ONE (09:30)
[2022-09-22 09:46] LABS: BLOOD UREA NITROGEN 11.5 mg/dL (7-18)
[2022-09-22 09:47] LABS: ALBUMIN 3.4 g/dl (3.4-5.0); CALCIUM 8.7 mg/dL (8.5-10.1)
[2022-09-22 09:51] LABS: CREATININE 0.8 mg/dL (0.55-1.3)
[2022-09-22 09:52] LABS: BILIRUBIN,TOTAL 0.3 mg/dL (0.2-1); TOT PROT 6.8 g/dl (6.4-8.2)
[2022-09-22] MEDS: HEPARIN NA (PORCINE) 5,000 UNITS/ML 1ML VIAL SQ SCH ×2 (10:04→22:12)
[2022-09-22] MEDS: PANTOPRAZOLE 40 MG TABLET PO SCH (10:04)
[2022-09-22] MEDS: ARIPiprazole 10 MG TABLET PO SCH (12:03)
[2022-09-22] MEDS: TOPIRAMATE 25 MG TABLET PO SCH ×2 (12:03→22:12)
[2022-09-22] MEDS: SUCRALFATE 1 GM TABLET (FP) PO SCH ×4 (12:03→22:12)
[2022-09-22] MEDS ORDERED: KETOROLAC TROMETHAMINE 30 MG/1 ML VIAL IVPUSH SCH (18:00)
[2022-09-22] MEDS ORDERED: NORTRIPTYLINE HCL 25 MG CAPSULE PO SCH (22:00)
[2022-09-22] MEDS ORDERED: QUEtiapine FUMARATE 25 MG TABLET PO SCH (22:00)
[2022-09-23] MEDS: ARIPiprazole 10 MG TABLET PO SCH (09:37)
[2022-09-23] MEDS: SUCRALFATE 1 GM TABLET (FP) PO SCH ×2 (09:37→15:10)
[2022-09-23] MEDS: TOPIRAMATE 25 MG TABLET PO SCH (09:38)
[2022-09-23] MEDS: PANTOPRAZOLE 40 MG TABLET PO SCH (09:41)
[2022-09-23] MEDS: HEPARIN NA (PORCINE) 5,000 UNITS/ML 1ML VIAL SQ SCH (09:41)
[2022-09-23] MEDS ORDERED: FLU VACC QS2022-23(6MOS UP)/PF 60 MCG/0.5 ML SYRINGE IM ONE (10:00)
[2022-09-23] MEDS: FLU VACC QS2022-23(6MOS UP)/PF 60 MCG/0.5 ML SYRINGE IM ONE ×2 (14:47→16:44)
[2022-09-23 15:50] VITALS: BP 123/73; PULSE 59; RESP 19; TEMP 97.7
== END 2022-09-23 16:50 | disposition home or self-care (01) | DRG 54 ==
LOC: JER 17:23 → JERBED 09-22 01:36 → OBSVTOIN 09-22 03:30 → J7W 09-22 04:30
PROVIDERS: ADMIT Internal Medicine; ATTEND Internal Medicine
DX: G43.909 Migraine, unspecified, not intractable, without status migrainosus (principal); D64.9 Anemia, unspecified; E78.5 Hyperlipidemia, unspecified; K21.9 Gastro-esophageal reflux disease without esophagitis
CPT/HCPCS: 36415; 70450-TC; 80053; 81003; 84703; 85025; 85027; 99285-25; C9803-CS; G0008; G0378; J1644; Q2036; U0003; U0005

== ENCOUNTER 2022-10-05 10:58 | Emergency (ER) | payer SELFPAY ==
[2022-10-05 11:09] VITALS: TEMP 99; BMI 30.8
[2022-10-05] MEDS ORDERED: SODIUM CHLORIDE 0.9% 500 ML INFUS.BAG IV ONE (12:27)
[2022-10-05] MEDS ORDERED: ACETAMINOPHEN 1000 MG/100 ML BAG IVPB ONE (12:27)
[2022-10-05] MEDS ORDERED: ONDANSETRON 4 MG/2 ML VIAL IVPUSH ONE (12:27)
[2022-10-05] MEDS ORDERED: ONDANSETRON 4 MG/2 ML VIAL ONE (13:07)
[2022-10-05] MEDS ORDERED: ACETAMINOPHEN INJECTION 100 ML IVPB ONE (13:07)
[2022-10-05 13:20] LABS: EOS % 0.4 % (0-4.5); HEMOGLOBIN 10.4 GM/dL (10.7-15.3); LYMPH % 18.4 % (8-40); MCH 27.6 pg (25.7-33.7); MCHC 32.5 g/dl (32.0-36.0); MEAN CELL VOLUME 84.9 fl (80-96); MEAN PLT VOLUME 7.1 fl (7.5-11.1); MONO % 4.6 % (3.8-10.2); NEUT % 75.6 % (42.8-82.8); PLATELET COUNT 389 10^3/uL (134-434); RBC 3.76 M/mm3 (3.60-5.2); RDW 19.1 % (11.6-15.6); WHITE BLOOD COUNT 11.3 K/mm3 (4.0-10.0)
[2022-10-05 13:30] LABS: CALCIUM 9.1 mg/dL (8.5-10.1)
[2022-10-05 13:31] LABS: ALBUMIN 3.5 g/dl (3.4-5.0); BLOOD UREA NITROGEN 10.2 mg/dL (7-18); MAGNESIUM 2.2 mg/dL (1.8-2.4)
[2022-10-05 13:33] LABS: CREATININE 0.7 mg/dL (0.55-1.3); PHOSPHOROUS 3.3 mg/dL (2.5-4.9)
[2022-10-05 13:35] LABS: BILIRUBIN,TOTAL 0.3 mg/dL (0.2-1); TOT PROT 7.3 g/dl (6.4-8.2)
[2022-10-05] MEDS ORDERED: IBUPROFEN 600 MG TABLET (FP) PO ONE ×2 (13:56→14:06)
[2022-10-05 15:11] VITALS: BP 140/78; PULSE 88; RESP 18
== END 2022-10-05 14:35 | disposition home or self-care (01) ==
LOC: JER 10:58
PROC: 3E033GC Introduction of Other Therapeutic Substance into Peripheral Vein, Percutaneous Approach (ICD-10-PCS; principal; 2022-10-05)
DX: B34.9 Viral infection, unspecified (principal)
CPT/HCPCS: 0241U-QW; 36415; 80053; 83690; 83735; 84100; 84484; 85025; 99284-25

== ENCOUNTER → 2022-12-23 | Emergency (ER) | payer SELFPAY ==
[~2022-12-23] MED LIST: ACETAMINOPHEN 1000 MG/100 ML BAG IVPB ONE; ACETAMINOPHEN INJECTION 100 ML IVPB ONE; METOCLOPRAMIDE HCL INJECTION 10 MG/2 ML VIAL IVPUSH ONE; METOCLOPRAMIDE HCL INJECTION 10 MG/2 ML VIAL ONE; SODIUM CHLORIDE 0.9% 500 ML INFUS.BAG IV ONE
[2022-12-23 17:43] VITALS: BP 128/87; PULSE 110; RESP 19; TEMP 98.2; BMI 31.1
== END | disposition left against medical advice (07) ==
LOC: JERFT 17:22
PROC: 3E0333Z Introduction of Anti-inflammatory into Peripheral Vein, Percutaneous Approach (ICD-10-PCS; principal; 2022-12-23)
PROC: 3E033NZ Introduction of Analgesics, Hypnotics, Sedatives into Peripheral Vein, Percutaneous Approach (ICD-10-PCS; 2022-12-23)
PROC: 3E033NZ Introduction of Analgesics, Hypnotics, Sedatives into Peripheral Vein, Percutaneous Approach (ICD-10-PCS; 2022-12-23)
DX: G43.909 Migraine, unspecified, not intractable, without status migrainosus (principal)
CPT/HCPCS: 99283-25

== ENCOUNTER 2023-04-19 16:28 | Observation (INO) | payer OTHER ==
[2023-04-19] MEDS ORDERED: KETOROLAC TROMETHAMINE 30 MG/1 ML VIAL IM ONE (17:43)
[2023-04-19] MEDS ORDERED: KETOROLAC TROMETHAMINE 30 MG/1 ML VIAL ONE (18:19)
[2023-04-19] MEDS ORDERED: ACETAMINOPHEN 325 MG TABLET (FP) PO ONE (18:42)
[2023-04-19] MEDS ORDERED: ACETAMINOPHEN 325 MG TABLET (FP) ONE (19:02)
[2023-04-19 19:34] LABS: THROAT:GRP A STREP NOT DETECTED (NOTDETECTED)
[2023-04-19 22:28] LABS: EPI CELLS 13 /uL (0-25.1); HYALINE CASTS 1 /uL (0-3.1); PH,URINE 5.5 (5.0-8.0); URINE APPEARANCE CLEAR; URINE BACTERIA 122 /uL (0-1359); URINE BILIRUBIN NEGATIVE (NEGATIVE); URINE COLOR YELLOW; URINE GLUCOSE (UA) NEGATIVE (NEGATIVE); URINE KETONE TRACE (NEGATIVE); URINE LEUK ESTERASE TRACE (NEGATIVE); URINE NITRITE NEGATIVE (NEGATIVE); URINE PROTEIN TRACE (NEGATIVE); URINE RBC 61 /uL (0-23.9); URINE WBC 10 /uL (0-25.8)
[2023-04-19] MEDS ORDERED: METOCLOPRAMIDE HCL INJECTION 10 MG/2 ML VIAL IVPUSH ONE (23:29)
[2023-04-19] MEDS ORDERED: SODIUM CHLORIDE 0.9% 1000 ML INFUS.BAG IV ONE (23:29)
[2023-04-19] MEDS ORDERED: ACETAMINOPHEN 1000 MG/100 ML BAG IVPB ONE (23:29)
[2023-04-19] MEDS ORDERED: METOCLOPRAMIDE HCL INJECTION 10 MG/2 ML VIAL ONE (23:43)
[2023-04-19] MEDS ORDERED: ACETAMINOPHEN INJECTION 100 ML IVPB ONE (23:44)
[2023-04-20 00:41] LABS: BASO % 0.5 % (0-2.0); EOS % 0.4 % (0-4.5); HEMOGLOBIN 10.2 GM/dL (10.7-15.3); MCH 27.4 pg (25.7-33.7); MCHC 31.9 g/dl (32.0-36.0); MEAN CELL VOLUME 85.7 fl (80-96); MEAN PLT VOLUME 8.1 fl (7.5-11.1); NEUT % 75.1 % (42.8-82.8); PLATELET COUNT 398 10^3/uL (134-434); RBC 3.74 M/mm3 (3.60-5.2); RDW 20.4 % (11.6-15.6); WHITE BLOOD COUNT 14.8 K/mm3 (4.0-10.0)
[2023-04-20 01:02] LABS: BLOOD UREA NITROGEN 9.2 mg/dL (7-18); CALCIUM 8.2 mg/dL (8.5-10.1)
[2023-04-20 01:03] LABS: ALBUMIN 3.6 g/dl (3.4-5.0)
[2023-04-20 01:06] LABS: CREATININE 1.1 mg/dL (0.55-1.3)
[2023-04-20 01:07] LABS: BILIRUBIN,TOTAL 0.3 mg/dL (0.2-1); TOT PROT 6.9 g/dl (6.4-8.2)
[2023-04-20] MEDS ORDERED: VANCOMYCIN 1 GM in D5W (PRE-DOCKED) 1,000 MG/250 ML (RESTRICTED TO ID ONLY IVPB ONE (02:30)
[2023-04-20] MEDS ORDERED: VANCOMYCIN/WATER FOR INJ (PEG) 1,000 MG/200 ML BAG IVPB ONE (04:29)
[2023-04-20] MEDS ORDERED: ONDANSETRON 4 MG/2 ML VIAL IVPUSH PRN (04:31)
[2023-04-20] MEDS: ACETAMINOPHEN 1000 MG/100 ML BAG IVPB PRN ×3 (05:00→14:16)
[2023-04-20] MEDS ORDERED: GENTAMICIN 80 MG PREMIXED IVPB 80 MG/100 ML BAG IVPB ONE (05:59)
[2023-04-20 06:15] LABS: BASO % 0.7 % (0-2.0); EOS % 0.8 % (0-4.5); HEMATOCRIT 28.8 % (32.4-45.2); HEMOGLOBIN 9.4 GM/dL (10.7-15.3); LYMPH % 20.1 % (8-40); MCH 28.1 pg (25.7-33.7); MCHC 32.5 g/dl (32.0-36.0); MEAN CELL VOLUME 86.4 fl (80-96); MEAN PLT VOLUME 7.7 fl (7.5-11.1); MONO % 6.1 % (3.8-10.2); NEUT % 72.3 % (42.8-82.8); PLATELET COUNT 327 10^3/uL (134-434); RBC 3.33 M/mm3 (3.60-5.2); RDW 20.5 % (11.6-15.6); WHITE BLOOD COUNT 10.7 K/mm3 (4.0-10.0)
[2023-04-20 06:35] LABS: POTASSIUM 3.7 mmol/L (3.5-5.1)
[2023-04-20 06:41] LABS: CREATININE 0.9 mg/dL (0.55-1.3)
[2023-04-20 06:42] LABS: BILIRUBIN,TOTAL 0.3 mg/dL (0.2-1)
[2023-04-20 08:32] LABS: ANISOCYTOSIS 2+; MACROCYTOSIS 0
[2023-04-20 09:13] VITALS: BMI 29.5
[2023-04-20] MEDS ORDERED: ARIPiprazole 10 MG TABLET PO SCH (10:00)
[2023-04-20] MEDS: TOPIRAMATE 25 MG TABLET PO SCH ×2 (10:37→21:57)
[2023-04-20] MEDS: ENOXAPARIN NA (PORCINE) 40 MG/0.4 ML DISP.SYRIN SQ SCH (10:40)
[2023-04-20] MEDS: CEFTRIAXONE 1 GM in DEXTROSE 5%-WATER - 50 ML IVPB SCH (15:32)
[2023-04-20] MEDS: PRAMIPEXOLE DIHYDROCHLORIDE 0.125 MG TABLET PO SCH (21:57)
[2023-04-20] MEDS ORDERED: QUEtiapine FUMARATE 25 MG TABLET PO SCH (22:00)
[2023-04-21] MEDS: ENOXAPARIN NA (PORCINE) 40 MG/0.4 ML DISP.SYRIN SQ SCH (09:50)
[2023-04-21] MEDS: TOPIRAMATE 25 MG TABLET PO SCH ×2 (09:50→21:26)
[2023-04-21] MEDS: CEFTRIAXONE 1 GM in DEXTROSE 5%-WATER - 50 ML IVPB SCH (09:51)
[2023-04-21 11:18] LABS: BASO % 0.6 % (0-2.0); EOS % 1.9 % (0-4.5); HEMATOCRIT 30.4 % (32.4-45.2); HEMOGLOBIN 9.8 GM/dL (10.7-15.3); LYMPH % 29.3 % (8-40); MCH 27.9 pg (25.7-33.7); MCHC 32.3 g/dl (32.0-36.0); MEAN CELL VOLUME 86.5 fl (80-96); MONO % 5.6 % (3.8-10.2); NEUT % 62.6 % (42.8-82.8); PLATELET COUNT 338 10^3/uL (134-434); RBC 3.52 M/mm3 (3.60-5.2); RDW 20.4 % (11.6-15.6); WHITE BLOOD COUNT 6.7 K/mm3 (4.0-10.0)
[2023-04-21 12:32] LABS: ALBUMIN 3.2 g/dl (3.4-5.0); CALCIUM 8.8 mg/dL (8.5-10.1)
[2023-04-21 12:33] LABS: BLOOD UREA NITROGEN 6.7 mg/dL (7-18)
[2023-04-21 12:35] LABS: CREATININE 0.8 mg/dL (0.55-1.3)
[2023-04-21 12:36] LABS: BILIRUBIN,TOTAL 0.2 mg/dL (0.2-1)
[2023-04-21 12:37] LABS: TOT PROT 6.4 g/dl (6.4-8.2)
[2023-04-21] MEDS ORDERED: RIMEGEPANT SULFATE 75 MG TAB.RAPDIS SL ONE (18:45)
[2023-04-21] MEDS: PANTOPRAZOLE 40 MG TABLET PO SCH (19:06)
[2023-04-21] MEDS: RIMEGEPANT SULFATE 75 MG TAB.RAPDIS SL PRN ×2 (19:06→19:13)
[2023-04-21] MEDS: PRAMIPEXOLE DIHYDROCHLORIDE 0.125 MG TABLET PO SCH (21:26)
[2023-04-22 01:10] VITALS: RESP 20
[2023-04-22] MEDS: PANTOPRAZOLE 40 MG TABLET PO SCH (10:36)
[2023-04-22] MEDS: TOPIRAMATE 25 MG TABLET PO SCH ×2 (10:36→21:53)
[2023-04-22] MEDS: CEFTRIAXONE 1 GM in DEXTROSE 5%-WATER - 50 ML IVPB SCH (10:37)
[2023-04-22] MEDS: ENOXAPARIN NA (PORCINE) 40 MG/0.4 ML DISP.SYRIN SQ SCH (10:40)
[2023-04-22] MEDS ORDERED: SENNOSIDES 8.6MG TABLET (FP) PO PRN (21:48)
[2023-04-22] MEDS: POLYETHYLENE GLYCOL (HEALTHYLAX) 3350 17 GM PACKET PO SCH (21:53)
[2023-04-22] MEDS: PRAMIPEXOLE DIHYDROCHLORIDE 0.125 MG TABLET PO SCH (21:56)
[2023-04-23 07:05] VITALS: BP 102/61; PULSE 68; TEMP 97.6
[2023-04-23] MEDS: TOPIRAMATE 25 MG TABLET PO SCH (10:24)
[2023-04-23] MEDS: POLYETHYLENE GLYCOL (HEALTHYLAX) 3350 17 GM PACKET PO SCH (10:24)
[2023-04-23] MEDS: PANTOPRAZOLE 40 MG TABLET PO SCH (10:24)
[2023-04-23] MEDS: CEFTRIAXONE 1 GM in DEXTROSE 5%-WATER - 50 ML IVPB SCH (10:24)
[2023-04-23] MEDS: ENOXAPARIN NA (PORCINE) 40 MG/0.4 ML DISP.SYRIN SQ SCH (10:24)
[2023-04-23] MEDS ORDERED: RIMEGEPANT SULFATE 75 MG TAB.RAPDIS SL PRN (11:00)
[2023-04-24] MEDS ORDERED: CEPHALEXIN MONOHYDRATE 500 MG CAPSULE (UD) PO SCH (10:00)
== END 2023-04-23 12:54 | disposition home or self-care (01) ==
LOC: JERFT 16:28 → JERBED 04-20 02:22 → UNDOADMOB 04-20 02:22 → OBSVTOIN 04-20 04:27 → INTOOBSV 04-20 04:27 → J5S 04-20 06:52 → JERBED 04-20 06:52 → J5S 04-20 11:38 → JERBED 04-20 11:38
PROVIDERS: ADMIT Internal Medicine; ATTEND Internal Medicine
PROC: 3E033NZ Introduction of Analgesics, Hypnotics, Sedatives into Peripheral Vein, Percutaneous Approach (ICD-10-PCS; principal; 2023-04-20)
PROC: 3E023GC Introduction of Other Therapeutic Substance into Muscle, Percutaneous Approach (ICD-10-PCS; 2023-04-20)
PROC: 3E0337Z Introduction of Electrolytic and Water Balance Substance into Peripheral Vein, Percutaneous Approach (ICD-10-PCS; 2023-04-20)
PROC: 3E03329 Introduction of Other Anti-infective into Peripheral Vein, Percutaneous Approach (ICD-10-PCS; 2023-04-20)
DX: E78.5 Hyperlipidemia, unspecified (principal); G43.909 Migraine, unspecified, not intractable, without status migrainosus; D72.829 Elevated white blood cell count, unspecified; F41.9 Anxiety disorder, unspecified; G25.81 Restless legs syndrome; Z88.0 Allergy status to penicillin
CPT/HCPCS: 0241U-QW; 36415; 70450-TC; 70486-TC; 71046-TC-FY; 74177-TC; 80053; 81003; 84703; 85025; 85651; 86140; 87040; 87086; 87207; 87651; 93005; 93010; 99285-25; G0378

== ENCOUNTER 2023-10-21 13:29 | Emergency (ER) | payer OTHER ==
[2023-10-21 13:50] VITALS: BP 105/59; PULSE 68; RESP 18; TEMP 98.1; BMI 30.2
[2023-10-21 15:07] LABS: EOS % 0.9 % (0-4.5); HEMATOCRIT 28.7 % (32.4-45.2); HEMOGLOBIN 9.4 GM/dL (10.7-15.3); LYMPH % 25.1 % (8-40); MCHC 32.8 g/dl (32.0-36.0); MEAN CELL VOLUME 85.3 fl (80-96); MEAN PLT VOLUME 7.5 fl (7.5-11.1); MONO % 5.4 % (3.8-10.2); NEUT % 67.6 % (42.8-82.8); PLATELET COUNT 342 10^3/uL (134-434); RBC 3.37 M/mm3 (3.60-5.2); RDW 20.1 % (11.6-15.6); WHITE BLOOD COUNT 7.1 K/mm3 (4.0-10.0)
[2023-10-21] MEDS ORDERED: ACETAMINOPHEN 325 MG TABLET (FP) PO ONE (15:19)
[2023-10-21] MEDS ORDERED: ACETAMINOPHEN 325 MG TABLET (FP) ONE (15:24)
[2023-10-21 15:33] LABS: POTASSIUM 3.5 mmol/L (3.5-5.1)
[2023-10-21 15:35] LABS: ALBUMIN 3.5 g/dl (3.4-5.0); BLOOD UREA NITROGEN 11.8 mg/dL (7-18); CALCIUM 8.3 mg/dL (8.5-10.1)
[2023-10-21 15:40] LABS: BILIRUBIN,TOTAL 0.2 mg/dL (0.2-1); TOT PROT 6.7 g/dl (6.4-8.2)
[2023-10-21] MEDS ORDERED: KETOROLAC TROMETHAMINE 30 MG/1 ML VIAL IM ONE (17:48)
[2023-10-21] MEDS ORDERED: LIDOCAINE 5% TOPICAL PATCH TP ONE (17:48)
[2023-10-21] MEDS ORDERED: KETOROLAC TROMETHAMINE 30 MG/1 ML VIAL ONE (17:54)
[2023-10-21] MEDS ORDERED: LIDOCAINE 4% PATCH TP ONE (17:54)
== END 2023-10-21 19:10 | disposition home or self-care (01) ==
LOC: JER 13:29
PROC: 3E0233Z Introduction of Anti-inflammatory into Muscle, Percutaneous Approach (ICD-10-PCS; principal; 2023-10-21)
DX: R55 Syncope and collapse (principal); R42 Dizziness and giddiness; W18.39XA Other fall on same level, initial encounter
CPT/HCPCS: 36415; 70450-TC; 71046-TC-FY; 72100-TC-FY; 72125-TC; 73030-TC-RT-FY; 73070-TC-RT-FY; 80053; 84484; 84703; 85025; 93005; 93010; 99285-25

== ENCOUNTER 2023-12-23 19:10 | Emergency (ER) | payer OTHER ==
[2023-12-23 19:25] VITALS: BP 132/87; PULSE 68; RESP 18; TEMP 97.8; BMI 29.2
[2023-12-23] MEDS ORDERED: ACETAMINOPHEN INJECTION 100 ML IVPB ONE (20:04)
[2023-12-23] MEDS ORDERED: LIDOCAINE 4% PATCH TP ONE (20:04)
[2023-12-23] MEDS ORDERED: ONDANSETRON 4 MG/2 ML VIAL ONE (20:04)
[2023-12-23 20:05] LABS: BASO % 1.2 % (0-2.0); HEMATOCRIT 31.8 % (32.4-45.2); HEMOGLOBIN 10.5 GM/dL (10.7-15.3); LYMPH % 25.7 % (8-40); MCH 28.3 pg (25.7-33.7); MCHC 32.9 g/dl (32.0-36.0); MEAN CELL VOLUME 85.9 fl (80-96); MEAN PLT VOLUME 7.3 fl (7.5-11.1); MONO % 4.8 % (3.8-10.2); NEUT % 67.3 % (42.8-82.8); PLATELET COUNT 444 10^3/uL (134-434); RBC 3.71 M/mm3 (3.60-5.2); RDW 20.1 % (11.6-15.6); WHITE BLOOD COUNT 10.2 K/mm3 (4.0-10.0)
[2023-12-23 20:08] LABS: EPI CELLS 4 /uL (0-25.1); HYALINE CASTS 0 /uL (0-3.1); URINE APPEARANCE CLEAR; URINE BACTERIA 32 /uL (0-1359); URINE BILIRUBIN NEGATIVE (NEGATIVE); URINE COLOR YELLOW; URINE GLUCOSE (UA) NEGATIVE (NEGATIVE); URINE KETONE NEGATIVE (NEGATIVE); URINE LEUK ESTERASE TRACE (NEGATIVE); URINE NITRITE NEGATIVE (NEGATIVE); URINE PROTEIN NEGATIVE (NEGATIVE); URINE RBC 18 /uL (0-23.9); URINE UROBILINOGEN 0.2 mg/dL (0.2-1.0); URINE WBC 8 /uL (0-25.8)
[2023-12-23] MEDS: ONDANSETRON 4 MG/2 ML VIAL IVPUSH ONE (20:11)
[2023-12-23] MEDS: SODIUM CHLORIDE 0.9% 500 ML INFUS.BAG IV ONE (20:11)
[2023-12-23] MEDS: LIDOCAINE 4% PATCH TP ONE (20:11)
[2023-12-23] MEDS: ACETAMINOPHEN 1000 MG/100 ML BAG IVPB ONE (20:12)
[2023-12-23 20:23] LABS: POTASSIUM 3.7 mmol/L (3.5-5.1)
[2023-12-23 20:25] LABS: ALBUMIN 3.7 g/dl (3.4-5.0); BLOOD UREA NITROGEN 10.6 mg/dL (7-18); CALCIUM 8.7 mg/dL (8.5-10.1)
[2023-12-23 20:28] LABS: CREATININE 0.8 mg/dL (0.55-1.3)
[2023-12-23 20:30] LABS: BILIRUBIN,TOTAL 0.3 mg/dL (0.2-1); TOT PROT 7.2 g/dl (6.4-8.2)
[2023-12-23] MEDS ORDERED: KETOROLAC TROMETHAMINE 15 MG/ML VIAL ONE (21:02)
[2023-12-23] MEDS: KETOROLAC TROMETHAMINE 15 MG/ML VIAL IVPUSH ONE (21:03)
[2023-12-23] MEDS ORDERED: METHOCARBAMOL 500 MG TABLET ONE (21:48)
[2023-12-23] MEDS: METHOCARBAMOL 500 MG TABLET PO ONE (21:51)
[2023-12-23] MEDS ORDERED: LIDOCAINE PATCH REMOVAL MC SCH (22:00)
== END 2023-12-23 22:40 | disposition home or self-care (01) ==
LOC: JER 19:10
PROC: 3E030NZ Introduction of Analgesics, Hypnotics, Sedatives into Peripheral Vein, Open Approach (ICD-10-PCS; principal; 2023-12-23)
PROC: 3E0303Z Introduction of Anti-inflammatory into Peripheral Vein, Open Approach (ICD-10-PCS; 2023-12-23)
PROC: 3E030GC Introduction of Other Therapeutic Substance into Peripheral Vein, Open Approach (ICD-10-PCS; 2023-12-23)
DX: R10.9 Unspecified abdominal pain (principal); R11.0 Nausea; R35.0 Frequency of micturition
CPT/HCPCS: 36415; 71046-TC-FY; 74176-TC; 80053; 81003; 84484; 84703; 85025; 87086; 93005; 93010; 99285-25; J0131

== ENCOUNTER 2024-02-22 17:34 | Emergency (ER) | payer OTHER ==
[2024-02-22 17:40] VITALS: BP 124/81; PULSE 83; RESP 18; TEMP 98.1; BMI 28.3
[2024-02-22] MEDS ORDERED: ACETAMINOPHEN INJECTION 100 ML IVPB ONE (18:29)
[2024-02-22] MEDS ORDERED: MAG HYDROX/AL HYDROX/SIMETH 30 ML UNIT-DOSE CUP ONE (18:29)
[2024-02-22] MEDS ORDERED: FAMOTIDINE 20 MG/50 ML IVPB 20 MG/50 ML MG IVPB ONE (18:29)
[2024-02-22] MEDS ORDERED: ONDANSETRON 4 MG/2 ML VIAL ONE (18:29)
[2024-02-22] MEDS: ACETAMINOPHEN 1000 MG/100 ML BAG IVPB ONE (18:46)
[2024-02-22] MEDS: MAG HYDROX/AL HYDROX/SIMETH 30 ML UNIT-DOSE CUP PO ONE (18:46)
[2024-02-22] MEDS: FAMOTIDINE 20 MG/50 ML IVPB 20 MG/50 ML MG IVPB ONE (18:47)
[2024-02-22] MEDS: ONDANSETRON 4 MG/2 ML VIAL IVPUSH ONE (18:47)
[2024-02-22] MEDS: LACTATED RINGERS SOLUTION 1000 ML INFUS.BAG IV ONE (19:00)
[2024-02-22 19:01] LABS: BASO % 0.6 % (0-2.0); EOS % 0.6 % (0-4.5); HEMATOCRIT 31.4 % (32.4-45.2); HEMOGLOBIN 10.1 GM/dL (10.7-15.3); LYMPH % 36.9 % (8-40); MCH 28.3 pg (25.7-33.7); MCHC 32.1 g/dl (32.0-36.0); MEAN CELL VOLUME 88.1 fl (80-96); MEAN PLT VOLUME 7.4 fl (7.5-11.1); MONO % 6.4 % (3.8-10.2); NEUT % 55.5 % (42.8-82.8); PLATELET COUNT 437 10^3/uL (134-434); RBC 3.56 M/mm3 (3.60-5.2); RDW 19.1 % (11.6-15.6); WHITE BLOOD COUNT 12.5 K/mm3 (4.0-10.0)
[2024-02-22 19:04] LABS: INR 1.01 (0.83-1.09); PROTHROMBIN TIME (PATIENT) 11.6 SEC (9.7-13.0)
[2024-02-22 19:07] LABS: ACTIVATED PTT 33.1 SECONDS (25.2-36.5); EPI CELLS 35 /uL (0-25.1); HYALINE CASTS 1 /uL (0-3.1); URINE APPEARANCE CLEAR; URINE BACTERIA 266 /uL (0-1359); URINE BILIRUBIN NEGATIVE (NEGATIVE); URINE COLOR YELLOW; URINE GLUCOSE (UA) NEGATIVE (NEGATIVE); URINE KETONE TRACE (NEGATIVE); URINE LEUK ESTERASE 2+ (NEGATIVE); URINE NITRITE NEGATIVE (NEGATIVE); URINE PROTEIN NEGATIVE (NEGATIVE); URINE WBC 72 /uL (0-25.8)
[2024-02-22 19:08] LABS: POTASSIUM 3.4 mmol/L (3.5-5.1)
[2024-02-22 19:10] LABS: ALBUMIN 3.8 g/dl (3.4-5.0); CALCIUM 8.7 mg/dL (8.5-10.1)
[2024-02-22 19:11] LABS: BLOOD UREA NITROGEN 14.1 mg/dL (7-18); MAGNESIUM 2.3 mg/dL (1.8-2.4)
[2024-02-22 19:14] LABS: CREATININE 0.9 mg/dL (0.55-1.3)
[2024-02-22 19:15] LABS: BILIRUBIN,TOTAL 0.2 mg/dL (0.2-1); TOT PROT 7.2 g/dl (6.4-8.2)
[2024-02-22 20:27] LABS: URINE CRYSTALS FEW /hpf; URINE RBC 51 /uL (0-23.9)
[2024-02-22] MEDS ORDERED: KETOROLAC TROMETHAMINE 15 MG/ML VIAL ONE (20:30)
[2024-02-22] MEDS: KETOROLAC TROMETHAMINE 15 MG/ML VIAL IVPUSH ONE (20:41)
[2024-02-22 22:13] LABS: HCG,QUALITATIVE URINE Negative
== END 2024-02-22 21:52 | disposition home or self-care (01) ==
LOC: JER 17:34
PROC: 3E033GC Introduction of Other Therapeutic Substance into Peripheral Vein, Percutaneous Approach (ICD-10-PCS; principal; 2024-02-22)
PROC: 3E033NZ Introduction of Analgesics, Hypnotics, Sedatives into Peripheral Vein, Percutaneous Approach (ICD-10-PCS; 2024-02-22)
PROC: 3E0333Z Introduction of Anti-inflammatory into Peripheral Vein, Percutaneous Approach (ICD-10-PCS; 2024-02-22)
DX: R10.9 Unspecified abdominal pain (principal); R11.2 Nausea with vomiting, unspecified
CPT/HCPCS: 36415; 74177-TC; 80053; 81003; 83690; 83735; 84484; 84703; 85025; 85610; 85730; 87086; 93005; 93010; 99285-25; J0131; Q9967

== ENCOUNTER 2024-07-10 11:16 | Emergency (ER) | payer OTHER ==
[2024-07-10 11:43] VITALS: BP 127/85; PULSE 62; RESP 19; TEMP 98.2; BMI 28.3
[2024-07-10] MEDS ORDERED: PROCHLORPERAZINE INJECTION 10 MG/2 ML VIAL ONE (13:08)
[2024-07-10] MEDS: SODIUM CHLORIDE 0.9% 500 ML INFUS.BAG IV ONE (13:40)
[2024-07-10] MEDS: PROCHLORPERAZINE INJECTION 10 MG/2 ML VIAL IVPB ONE (13:41)
[2024-07-10 13:51] LABS: BASO % 0.9 % (0-2.0); EOS % 1.2 % (0-4.5); HEMATOCRIT 31.5 % (32.4-45.2); HEMOGLOBIN 10.3 GM/dL (10.7-15.3); LYMPH % 30.6 % (8-40); MCH 28.7 pg (25.7-33.7); MCHC 32.6 g/dl (32.0-36.0); MEAN CELL VOLUME 88.1 fl (80-96); MEAN PLT VOLUME 7.7 fl (7.5-11.1); MONO % 4.8 % (3.8-10.2); NEUT % 62.5 % (42.8-82.8); PLATELET COUNT 299 10^3/uL (134-434); RBC 3.58 M/mm3 (3.60-5.2); RDW 17.4 % (11.6-15.6); WHITE BLOOD COUNT 7.7 K/mm3 (4.0-10.0)
[2024-07-10 14:40] LABS: CHLORIDE 110 mmol/L (98-107); POTASSIUM 3.9 mmol/L (3.5-5.1); SODIUM 141 mmol/L (136-145)
[2024-07-10] MEDS ORDERED: ACETAMINOPHEN 1000 MG/100 ML BAG IVPB ONE (14:40)
[2024-07-10] MEDS ORDERED: MAGNESIUM SULF 50% (8.12 MEQ/2 ML-1 GM VIAL) IVPB ONE (14:40)
[2024-07-10 14:42] LABS: CALCIUM 8.7 mg/dL (8.5-10.1); ERYTHROCYTE SEDIMENTATION RATE 13 mm/hr (0-20)
[2024-07-10 14:43] LABS: ALBUMIN 3.8 g/dl (3.4-5.0); ANION GAP 4 mmol/L (4-13); BLOOD UREA NITROGEN 11.7 mg/dL (7-18); CO2 27 mmol/L (21-32); GLUCOSE,RANDOM 77 mg/dL (74-106); MAGNESIUM 2.2 mg/dL (1.8-2.4)
[2024-07-10 14:46] LABS: CREATININE 0.9 mg/dL (0.55-1.3); SGOT/AST 22 U/L (15-37); SGPT/ALT 18 U/L (13-61)
[2024-07-10 14:48] LABS: TOT PROT 6.9 g/dl (6.4-8.2)
[2024-07-10 14:49] LABS: ALK PHOS 146 U/L (45-117)
[2024-07-10 15:09] LABS: HIV INTERPRETATION NEGATIVE (NEGATIVE)
[2024-07-10 15:41] LABS: BILIRUBIN,TOTAL 0.3 mg/dL (0.2-1)
== END 2024-07-10 16:25 | disposition home or self-care (01) ==
LOC: JER 11:16
PROC: 3E033GC Introduction of Other Therapeutic Substance into Peripheral Vein, Percutaneous Approach (ICD-10-PCS; principal; 2024-07-10)
PROC: 3E033GC Introduction of Other Therapeutic Substance into Peripheral Vein, Percutaneous Approach (ICD-10-PCS; 2024-07-10)
DX: R51.9 Headache, unspecified (principal); R42 Dizziness and giddiness; R53.1 Weakness; H53.149 Visual discomfort, unspecified
CPT/HCPCS: 36415; 70450-TC; 80053; 82550; 83735; 84443; 84484; 84703; 85025; 85651; 86140; 86803; 87389; 93005; 93010; 99285-25